=== PATIENT | female | born 1945 | race Caucasian/White ===

== ENCOUNTER 2018-05-08 16:28 | Inpatient (IN) ==
[2018-05-08 19:29] LABS: BASO# 0.03 X1000 (0.0-0.2); BASO% 0.5 % (0.0-0.8); EOS# 0.11 X1000 (0.0-0.7); EOS% 1.8 % (0.0-10.0); HEMATOCRIT 40.2 % (37.0-47.0); HEMOGLOBIN 12.9 g/dL (12.0-16.0); IMM GRAN# 0.11 X1000 (0.0-0.04); IMM GRAN% 1.8 % (0.0-0.5); LYMPH# 2.08 X1000 (1.2-3.4); LYMPH% 33.9 % (20.5-51.1); MCH 29.5 PG (27-31); MCHC 32.1 g/dL (33-37); MCV 91.8 FL (81-99); MONO# 0.55 X1000 (0.11-0.59); MPV 8.5 FL (7.4-10.4); NEUT# 3.25 X1000 (1.4-6.5); PLT 217 X1000 (130-400); RBC 4.38 XMIL (4.2-5.4); RDW 12.4 % (11.5-14.5); WBC 6.13 X1000 (4.8-10.8)
[2018-05-08 19:50] LABS: ALB/GLOB RATIO 1.6; CALCIUM 9.4 mg/dL (8.8-10.2); CREATININE 1.3 mg/dL (0.5-0.9); POTASSIUM 4.4 mmol/L (3.5-5.1); TOTAL BILIRUBIN 0.2 mg/dL (0.20-1.00); TOTAL PROTEIN 6.5 g/dL (6.3-8.3)
--- NOTE | 2018-05-08 20:32 | Diag Imaging Result Doc PS360 ---
CHEST-2 VIEWS - 05/08/2018 INDICATION: SOB COMPARISON: 06/27/2017 FINDINGS: There is a right chest port in good position. There is some linear scarring throughout the left lung peripherally. The right lung is well expanded and clear. No pneumothorax or pleural effusion. Heart size is top normal. IMPRESSION: Linear opacity suggesting scarring throughout the left lung. Electronically signed by Lazaro Shahid 05/08/2018 8:29 PM
[2018-05-08] MEDS: HUMULIN R SUBQ SCH (21:07)
[2018-05-08] MEDS: DESYREL PO SCH (21:14)
[2018-05-08] MEDS: ASPIRIN PO SCH (21:14)
[2018-05-08] MEDS: PRAVACHOL PO SCH (21:14)
[2018-05-08] MEDS: ULTRAM PO SCH (21:14)
[2018-05-08] MEDS: KLOR-CON PO SCH (21:14)
[2018-05-08] MEDS: XANAX PO SCH (21:19)
[2018-05-08] MEDS ORDERED: MORPHINE IV PRN (22:38)
[2018-05-08] MEDS: MACROBID PO SCH (22:48)
[2018-05-09] MEDS: NITROGLYCERIN TOP SCH ×4 (01:42→21:00)
--- NOTE | 2018-05-09 02:43 | HISTORY AND PHYSICAL ---
CHIEF COMPLAINT: Exertional chest pain for the last 1 week. HISTORY OF PRESENT ILLNESS: She is a 72-year-old white female came to my office from the emergency room visit from the [facility]. She was told all the workup was negative. She was found to have urinary tract infection due to Citrobacter. Patient was sent home on cephalexin. [facility]. Upon questioning, the patient has exertional heaviness in the chest relieving with rest. Suspicious for coronary artery disease. The patient was seen prior by Dr. Johnson. Left heart catheterization was done in 2011 with high calcium score. She had a ramus intermedius occlusion treated with a [employer] medical management. Patient is high risk for having coronary artery disease. Admitted to the hospital for further workup, rule out ME, rule out ischemic heart disease. PAST MEDICAL HISTORY: 1. Chronic anxiety. 2. COPD. 3. Type 2 diabetes, insulin-dependent. 4. Metabolic syndrome. 5. Hypertension. 6. Acid reflux disease. 7. Migraine headaches. 8. Hyperlipidemia. 9. Follicular B-cell lymphoma. 10. Kidney stones. 11. Sleep apnea. 12. Incontinence of urine. 13. Fibromyalgia. 14. Vitamin B12 deficiency. PAST SURGICAL HISTORY: 1. History of kidney stones extraction. 2. Bilateral cataract surgery. 3. Cholecystectomy. 4. Hysterectomy. 5. Bilateral knee arthroplasty. 6. Heller's myotomy. 7. Port-A-Cath on the right side by Dr. Goins. MEDICATIONS: Nexium 40 mg daily, trazodone 150 at bedtime, Pravachol 40 daily, Xanax 1 mg p.o. b.i.d., Cardizem 180 daily, insulin pump, Hyzaar 100/25 daily, Imitrex as needed , VESIcare 10 daily, Spiriva 1 inhalation daily, gabapentin 100 daily, allopurinol 300 daily, Macrobid 100 p.o. b.i.d., tramadol, [place] as needed, Cymbalta 60 daily, Elmiron 100 mg p.o. b.i.d., potassium 20 mEq daily. ALLERGIES: Adhesive tape and Lyrica. SOCIAL HISTORY: She is for 48 years, 2 children. Lives in [place]. No smoking, no drugs, no alcohol abuse. FAMILY HISTORY: Father at the age of 86 from Parkinson disease. Mom from old age. HEALTH MAINTENANCE: Flu vaccine 12/2017, pneumococcal 2012, shingles 2012. Mammography 02/2018. DEXA scan 02/2014. Colonoscopy 2011. Last eye exam 2016 in [place]. REVIEW OF SYSTEMS: HEENT: No headache. No vision problem. No earache. No sore throat. NECK: Rash from the adhesive tape on the neck. Cardiopulmonary: Exertional chest pain. No shortness of breath, PND, orthopnea. No swelling of feet. Gastrointestinal: No nausea, vomiting, abdominal pain. Recurrent UTI symptoms due to incontinence of urine. Musculoskeletal: Chronic back pain and knee pains. Neurologic: No focal symptoms, weakness, or seizures. Endocrine: The patient has diabetes. PHYSICAL EXAM: VITAL SIGNS: Temperature is 98.9 degrees, pulse is 75, blood pressure is 148/80 , O2 saturation 99% on 3 L. 5 feet 8 inches, 242 pounds. HEENT: Within normal limits. NECK: Supple. No elevation of JVD. CHEST: Port-A-Cath present on the right side of the chest. Chest has bilateral air entry. HEART: Sounds are regular. No murmur. ABDOMEN: Belly is soft, obese, nontender. Good bowel sounds. EXTREMITIES: No peripheral edema, cyanosis. NEURO: No obvious neurological deficits noted. INVESTIGATIONS: EKG is pending. CBC: White cell count 6.1, hematocrit 40, platelets 270,000. SMA-7: Creatinine 1.3. Glucose 112. A1c 5.0. AST, ALT, cardiac enzymes, proBNP were normal. Chest x-ray was stable. ASSESSMENT AND PLAN: 1. A 72-year-old white female admitted to the hospital with exertional chest pain equal to angina in light of pre-existing ischemic heart disease. Plan is follow up on EKG, if the EKG is negative will consider stress test and echocardiography. 2. Urinary tract infection, recently treated. Follow up on urine culture. Check the lipid panel. 3. Hyperlipidemia, on Pravachol. 4. Reconcile home medications. Continue on aspirin and nitrates. Morphine for p.r.n. pain. 5. DVT and GI prophylaxis. Lovenox and proton pump inhibitor. cc: MD ROYAL Willams
[2018-05-09] MEDS: HUMULIN R SUBQ SCH ×4 (06:21→21:04)
[2018-05-09] MEDS: ULTRAM PO SCH ×3 (06:29→21:01)
--- NOTE | 2018-05-09 07:17 | EKG Report ---
Test Performed on : 05/08/2018 8:36:55 PM Test Reason : chest pain Blood Pressure : / mmHG Vent. Rate : 079 BPM Atrial Rate : 079 BPM P-R Int : 212 ms QRS Dur : 074 ms QT Int : 390 ms P-R-T Axes : 038 003 054 degrees QTc Int : 447 ms Sinus rhythm. with 1st degree AV block. Otherwise normal ECG When compared with ECG of 10-OCT-2017 16:39, No significant change was found Confirmed by Aakash Allen MD ([id number]) on 05/10/2018 6:47:19 AM
[2018-05-09] MEDS: SPIRIVA INH SCH (08:32)
[2018-05-09 08:39] LABS: CHOLESTEROL 148 mg/dL (0-200); HDL 40 mg/dL (45-65); LDL 59 mg/dL; TRIGLYCERIDES 243 mg/dL (35-135); VLDL 49 mg/dL
[2018-05-09] MEDS: TYLENOL PO PRN ×2 (08:59→17:48)
[2018-05-09] MEDS ORDERED: LEXISCAN ONE (10:21)
[2018-05-09] MEDS: MACROBID PO SCH ×2 (13:51→21:01)
[2018-05-09] MEDS: CYMBALTA PO SCH (13:51)
[2018-05-09] MEDS: PRILOSEC PO SCH (13:51)
[2018-05-09] MEDS: ZYLOPRIM PO SCH (13:51)
[2018-05-09] MEDS: XANAX PO SCH ×2 (13:52→21:00)
[2018-05-09] MEDS: KLOR-CON PO SCH ×2 (13:52→21:01)
[2018-05-09] MEDS: NEURONTIN PO SCH (13:53)
[2018-05-09] MEDS: HYZAAR 50/12.5 MG PO SCH (13:53)
[2018-05-09] MEDS: LOVENOX SUBQ SCH (13:53)
--- NOTE | 2018-05-09 14:19 | Diag Imaging Result Document ---
PROCEDURE NAME: MYOCARDIAL PERF SCAN, STR/REST - 05/09/2018 STUDY: Lexiscan sestamibi interpretation. SUMMARY: The patient was administered 15.4 mCi of technetium-99m sestamibi, after which resting cardiac images were obtained. Patient subsequently administered Lexiscan 0.4 mg intravenously after which the heart rate went from 79 beats per minute to 105 beats per minute. The blood pressure went from 146/73 to 162/81. With Lexiscan, the patient had chest discomfort. Following the administration of Lexiscan, the patient was administered 45.0 mCi of technetium 99-m sestamibi after which gated stress cardiac images were obtained. Baseline ECG demonstrated sinus rhythm and left axis deviation. With Lexiscan, there were no diagnostic ST-segment changes. SPECT images were reconstructed in the short, horizontal, vertical long axis. A review of these images demonstrated. No scintigraphic evidence of inducible myocardial ischemia or prior infarct. Gated images demonstrate a calculated left ventricular ejection fraction of 77% with symmetrical wall motion/thickening. CONCLUSIONS: 1. Adequate response to Lexiscan. 2. Clinically negative for chest pain. 3. Electrocardiographically negative for Lexiscan induced myocardial ischemia. 4. Lexiscan sestamibi images demonstrate no scintigraphic evidence of inducible myocardial ischemia. Normal left ventricular systolic function demonstrated. cc: MD Elan Thakur MD
[2018-05-09] MEDS ORDERED: IMITREX PO ONE (16:05)
[2018-05-09] MEDS: PRAVACHOL PO SCH (21:01)
[2018-05-09] MEDS: DESYREL PO SCH (21:01)
[2018-05-09] MEDS: ASPIRIN PO SCH (21:01)
--- NOTE | 2018-05-09 22:30 | ECHO REPORT ---
ORDER DATE: 05/08/2018 MEASUREMENTS: Left ventricular end-diastolic diameter 4.1. Systolic diameter 2.0. Septal thickness 1.2. Posterior wall thickness 1.1. Aortic root 2.6. Left atrium 3.9. SUMMARY: 1. Technically difficult study due to limited acoustic window quality. Intravenous echocardiogram contrast agent Optison was utilized to enhance endocardial definition. 2. The aortic valve is not well-imaged, but appears to demonstrate mild sclerotic changes, but opens adequately on 2-dimensional images. Peak gradient across the aortic valve is approximately 10 mmHg. Mitral, tricuspid, and pulmonic valves are without evidence of structural abnormality. The aortic root is normal in size. 3. Normal left ventricular dimensions suggested on 2-dimensional images. Estimated left ventricular ejection fraction appears to be at least 65%. No regional wall motion abnormalities evident. Doppler suggests grade 1 left ventricular diastolic dysfunction. Left atrium, right atrium, right ventricle are normal in size, with normal right ventricular systolic function. 4. No pericardial effusion. 5. Appearance of inferior vena cava suggests normal central venous pressure. cc: MD Elan Thakur MD
[2018-05-10] MEDS: TYLENOL PO PRN (00:46)
[2018-05-10] MEDS: NITROGLYCERIN TOP SCH ×2 (03:25→09:04)
--- NOTE | 2018-05-10 03:52 | PROGRESS NOTE ---
DATE: 05/09/2018 SUBJECTIVE: Patient is pain-free. Complains of some headache and cramping. Waiting for a stress test. EXAMINATION: Vital Signs: Temperature Is 97.9 degrees, pulse is 97, blood pressure is stable. HEENT: Within normal limits. Neck: Supple. No lymphadenopathy. Chest: Bilateral air entry. Heart: Sounds are regular. Abdomen: Belly is soft, nontender. Good bowel sounds. INVESTIGATIONS: CBC is normal. SMA-7 is normal. Cardiac enzymes were negative. Triglycerides 240, cholesterol 148, LDL 59. ASSESSMENT AND PLAN: Exertional chest pain. EKG, cardiac enzymes were negative. Last left heart catheterization was 2011. With a calcium score high, in light of risk factors, rule out ischemic heart disease. Based on the stress test, further recommendations will be followed. Continue present treatment. Discussed the plan of care with the family at bedside. LEVEL OF DOCUMENTATION: 25 minutes. cc: Elan Zaragoza MD
[2018-05-10] MEDS: ULTRAM PO SCH (06:11)
[2018-05-10] MEDS: HUMULIN R SUBQ SCH (06:17)
[2018-05-10 06:23] LABS: URINE SOURCE CLEAN CATCH
[2018-05-10 06:26] LABS: BILIRUBIN URINE NEGATIVE (NEGATIVE); BLOOD URINE NEGATIVE (NEGATIVE); COLOR YELLOW; GLUCOSE URINE NEGATIVE (NEGATIVE); KETONE URINE NEGATIVE (NEGATIVE); LEUKOCYTES URINE SMALL (NEGATIVE); NITRITE URINE NEGATIVE (NEGATIVE); PH URINE 5.5; PROTEIN URINE NEGATIVE (NEGATIVE); SP GRAVITY URINE 1.001; TURBIDITY URINE CLEAR (CLEAR); UROBILINOGEN URINE NORMAL (NORMAL)
[2018-05-10 06:28] LABS: UR EPITHELIAL CELLS <10 /HPF (<10); URINE BACTERIA NEGATIVE /HPF; URINE RBC <10 /HPF (<10)
[2018-05-10 08:11] VITALS: BP 122/77
[2018-05-10] MEDS: SPIRIVA INH SCH (08:16)
[2018-05-10] MEDS: KLOR-CON PO SCH (09:07)
[2018-05-10] MEDS: NEURONTIN PO SCH (09:08)
[2018-05-10] MEDS: HYZAAR 50/12.5 MG PO SCH (09:08)
[2018-05-10] MEDS: CYMBALTA PO SCH (09:08)
[2018-05-10] MEDS: XANAX PO SCH (09:08)
[2018-05-10] MEDS: MACROBID PO SCH (09:08)
[2018-05-10] MEDS: ZYLOPRIM PO SCH (09:08)
[2018-05-10] MEDS: PRILOSEC PO SCH (09:10)
[2018-05-10] MEDS: LOVENOX SUBQ SCH (09:10)
--- NOTE | 2018-05-11 23:00 | DISCHARGE SUMMARY ---
ADMISSION DATE: 05/08/2018 DISCHARGE DATE: 05/10/2018 DISCHARGING DIAGNOSIS: Exertional chest pain noncritical coronary artery disease from the previous left heart catheterization in 2011 with the ramus intermedius occlusion by Dr. Johnson. SECONDARY DIAGNOSIS: 1. Chronic anxiety. 2. Chronic obstructive pulmonary disease. 3. Type 2 diabetes on insulin dependent. 4. Metabolic syndrome. 5. Hypertension . 6. Acid reflux disease. 7. Migraine headaches. 8. Hyperlipidemia. 9. Low-grade follicular B-cell lymphoma in remission. 10. Kidney stones. 11. Sleep apnea. 12. Recurrent urinary tract infection due to incontinence of urine. 13. Chronic fibromyalgia, vitamin B12 deficiency. 14. History of port on the right side. PROCEDURES: Myocardial perfusion scan no reversible ischemia as per Jus Shipley. BRIEF HISTORY: Please see the H and P that was done on 05/08/2018. In brief she is a 72-year-old white female was seen in the [facility] ER for exertional weakness and chest pressure and sent home on UTI. Initial workup EKG cardiac enzymes were negative. In light of existing heart disease and risk factors patient was admitted for observation for rule out MT rule out ischemic heart disease. HOSPITAL COURSE: Initial workup EKG, cardiac enzymes were negative. I did discuss with Dr. Chaudhary who is senior applications engineer if he wants to do a stress test. If is positive will do left heart catheterization. Subsequent cardiac workup was negative. Patient could not tolerate nitrates due to severe headaches. Results were discussed, if she continues to have symptomatic will pursue for left heart catheterization as an outpatient. She is going to follow up with this android developer Dr. Johnson. Findings were reassuring. LABS: CBC. White cell count 6.1, hematocrit 40, platelet 217,000. SMA 7 sodium 140, potassium 4.4, chloride 104, BUN 16, creatinine 1.3, A1c 5.0. Cardiac enzymes were negative. Troponin was negative, proBNP was normal, triglycerides 243, cholesterol 148, LDL is 59. Urine cultures repeat was negative. Chest x-ray stable. DISCHARGE INSTRUCTIONS: Patient did receive pneumococcal 13 vaccine 06/27/2017 and Nexium 40 mg daily, trazodone 150 at bedtime, pravastatin 40 daily, Xanax 1 mg p.o. b.i.d., Cardizem 180 daily, insulin pump as directed, A1c is excellent, Hyzaar 100/25 daily, Imitrex as needed, VESIcare 10 mg daily, Spiriva 1 puff daily, gabapentin 100 daily, Estrace 1 mg daily, allopurinol 300 daily, Macrobid 50 mg p.o. b.i.d. for 7 days, Cymbalta 60 daily, Neurontin 300 t.i.d., Elmiron 100 p.o. b.i.d., potassium 20 mEq p.o. b.i.d., tramadol 50 q.8, do not take [place] with Xanax and continue to see the android developer Dr. Johnson, Dr. Coreas for lymphoma. As for existing heart disease A1c is excellent and the LDL is less than 70. cc: Emil Coreas MD
== END 2018-05-10 10:41 | disposition home health service (06) | DRG 313 ==
LOC: DIRADM 16:28 → 3N 18:02
PROVIDERS: ADMIT Internal Medicine; ATTEND Internal Medicine
CPT/HCPCS: 71020; 71046; 78452; 80048; 80053; 80061; 81001; 82550; 82948; 83036; 83880; 84484; 85025; 87088; 93005; 93010; 93017; 93306; 94640; 94761; A9270; A9500; C8929; J1650; J2785; Q9957; XXXXX

== ENCOUNTER 2018-06-01 05:39 | Inpatient (IN) ==
--- NOTE | 2018-06-01 06:56 | Diag Imaging Result Doc PS360 ---
EXAM: FOREARM-LEFT 06/01/2018 HISTORY: left forearm pain TECHNIQUE: Left forearm two views COMMENT: There is no evidence of fracture or dislocation. No periosteal reaction or erosion is present. IMPRESSION: No evidence of acute bony abnormality. Electronically signed by Danny Bernardo 06/01/2018 6:54 AM
--- NOTE | 2018-06-01 06:57 | Diag Imaging Result Doc PS360 ---
EXAM: HUMERUS-LEFT 06/01/2018 HISTORY: left arm pain TECHNIQUE: Left humerus two views COMMENT: There is no evidence of fracture or dislocation. No other definite bony abnormalities are present. IMPRESSION: No acute disease. Electronically signed by Danny Bernardo 06/01/2018 6:54 AM
--- NOTE | 2018-06-01 06:58 | Diag Imaging Result Doc PS360 ---
EXAM: SHOULDER-RIGHT 06/01/2018 HISTORY: fall TECHNIQUE: Right shoulder three views COMMENT: There are degenerative changes in the acromioclavicular joint. There is no evidence of fracture or dislocation. Compared to 06/19/2017 there has been no significant change in the appearance of the right shoulder. IMPRESSION: Osteoarthritis. Electronically signed by Danny Bernardo 06/01/2018 6:55 AM
--- NOTE | 2018-06-01 07:03 | Diag Imaging Result Doc PS360 ---
EXAM: CT HEAD/C-SPINE W/O CONTRAST 06/01/2018 HISTORY: head injury TECHNIQUE: This exam was performed using automated exposure control, adjustment of mA or kV according to patient size, and/or use of iterative reconstruction technique. COMMENT: There are no previous studies available for comparison. There is some atherosclerotic calcification in both vertebral and internal carotid arteries. There is a calcification in the right globus pallidus. There are some patchy abnormal lucencies present in both hemispheres particularly in the subcortical and periventricular white matter of the parietal lobes. There is no evidence of bleed or abnormal extra-axial fluid collection. The calvarium is intact. There are fluid levels in both sphenoid sinuses and there is mucosal thickening in the anterior ethmoid air cells bilaterally. There is a small amount of fluid in the right maxillary sinus. No evidence of acute bony abnormality is present. Cervical spine: There is severe degenerative facet disease at the C4-5 and C5-C6 levels on the right side and the C3-4 level on the left. There is posterior osteophyte formation at the C5-6 disc space level. There is no evidence of fracture, subluxation, or prevertebral soft tissue swelling. There are degenerative changes in the anterior atlantoaxial joint. There is a small accessory ossicle adjacent to the vertebral artery foramen at C1. IMPRESSION: No evidence of acute intracranial disease. Chronic microvascular white matter disease. Sinusitis as described. Chronic degenerative changes in the cervical spine. Electronically signed by Danny Bernardo 06/01/2018 7:01 AM
[2018-06-01 07:41] LABS: CK INDEX 1.7 (0.0-2.5); CK-MB 8.32 ng/mL (0.0-5.0)
--- NOTE | 2018-06-01 08:10 | PROVIDER DOCUMENTATION ---
HPI-Musculoskeletal Pain/Inj - GENERAL Chief Complaint: Fall Stated Complaint: found in floor Time Seen by Provider: 06/01/18 07:31 Source: patient, family - HX OF PRESENT ILLNESS-MUSKULOSKELTAL Quality of Pain: reports: dull Severity in ED: mild, moderate Onset/Duration: 4-6 hours ago Timing: still present Modifying Factors: improves with: nothing Any recent injury?: No Locality of Occurance: Home (PT HAS POOR MOBILITY AND HEALTH. SLEEPS IN SEPERATE ROOM WITH BEDSIDE BUZZER. FELL OUT OF BE MID OF NIGHT AND LAY ONSTOMACH LNG ENOUGH TO GET ABRASIONS AND BRUISES OF UPPER ABDOMEN. C/O PAINS , AUNG LEFT F OREARM. PT AWAKE, NO DISTRESS .) Similar Symptoms Previously?: Yes Review of Systems - Adult - REVIEW OF SYSTEMS - ADULT Constitutional: reports: no symptoms reported. denies: chills Eyes: reports: no symptoms reported Ears, Nose, Mouth & Throat: reports: no symptoms reported Cardiovascular: reports: no symptoms reported Respiratory: reports: no symptoms reported Gastrointestinal: reports: no symptoms reported Genitourinary: reports: no symptoms reported Musculoskeletal: reports: no symptoms reported Integumentary: reports: no symptoms reported Neurological: reports: no symptoms reported Psychiatric: reports: no symptoms reported Endocrine: reports: no symptoms reported Hematologic/Lymphatic: reports: no symptoms reported Allergic/Immunologic: reports: no symptoms reported All Other Systems: Reviewed and Negative Past History - Adult - PAST MEDICAL HISTORY-ADULT Review of Records: reports: Old Records Reviewed, Nursing Assessment Review, Medications Reviewed, Social history reviewed & non-contributory. Major Childhood Illnesses: reports: denies history Cardiovascular: reports: denies history Respiratory: reports: denies history Gastrointestinal: reports: denies history Obstetrical/Gynecological: reports: denies history Genitourinary: reports: denies history Musculoskeletal: reports: denies history Neurological: reports: denies history Endocrine/Immune: reports: denies history Other Conditions: reports: denies history - SOCIAL HISTORY Alcohol Use Frequency: never Physical Exam-Injury Related - Physical Exam-Injury Related Initial Vital Signs Reviewed: Yes (FEVER) General Appearance: appears well. negative: mild distress Eyes: PERRL/EOMI, pink conjunctivae Head, Ears, Nose, Mouth & Throat: normocephalic/atraumatic, moist mucous membranes Neck: non-tender, full range of motion, supple Respiratory: chest non-tender, lungs clear, normal breath sounds, no respiratory distress Cardiovascular: normal peripheral pulses, regular rate, rhythm, no edema, no gallop, no JVD, no murmur Abdominal Exam: normal bowel sounds, non tender, soft, no organomegaly, other (LINEAR BRUISING UPPR ANT ABD WALL, MINIMAL LOCAL TENDERNESS SAME AREA) Extremity: normal range of motion, normal inspection, tenderness (MILD-MODERTE TENDERNESS /WO DEFORMITY LEFT MID FOREARM ADN ELBOW, LEFT UPPER HUMEROUS). negative: deformity, erythema Integumentary: normal color, warm/dry, ecchymosis Neurologic: land inspector II-XII nml as tested, grossly normal, no motor/sensory deficits Psych/Mental Status: normal mood/affect, normal thought content, normal thought process, oriented x 3 - Glascow Coma Score Best Eye Response (Yohannes): (4) open spontaneously Best Verbal Response (Sayre): (5) oriented Best Motor Response (Sayre): (6) obeys commands (15) Progress - PLAN OF CARE/RESULTS Progress/Plan/Lab Results: Vital Signs - 8 hr 06/01/18 05:56 Temperature 100.0 F H Pulse Rate 106 H Respiratory Rate 13 Blood Pressure 155/67 O2 Sat by Pulse Oximetry 95 06/01/18 10:27 Influenza Screen - Final Nasopharyngeal Laboratory Results - last 24 hr 06/01/18 06/01/18 06/01/18 06:55 10:21 10:21 WBC 6.94 RBC 3.88 L Hgb 11.5 L Hct 36.1 L MCV 93.0 MCH 29.6 MCHC 31.9 L RDW Std Deviation 14.0 Plt Count 149 MPV 9.0 Immature Gran % (Auto) 2.0 H Neut % (Auto) 69.5 Lymph % (Auto) 18.6 L Cotton % (Auto) 9.7 H Eos % (Auto) 0.1 Baso % (Auto) 0.1 Immature Gran # (Auto) 0.14 H Neut # (Auto) 4.82 Lymph # (Auto) 1.29 Cotton # (Auto) 0.67 H Eos # (Auto) 0.01 Baso # (Auto) 0.01 Sodium 136 Potassium 3.1 L Chloride 97 L Carbon Dioxide 24 L Anion Gap 15 BUN 15 Creatinine 1.1 H Estimated GFR/1.73 m2 49 BUN/Creatinine Ratio 14 Glucose 120 H Calculated Osmolality 274 Calcium 9.3 Magnesium 1.3 L Total Bilirubin 0.31 AST 66 H ALT 38 H Alkaline Phosphatase 81 Creatine Kinase 480 H Creatine Kinase Index 1.7 CK-MB (CK-2) 8.32 H Troponin T Total Protein 6.1 L Albumin 4.0 Globulin 2.1 Albumin/Globulin Ratio 1.9 Plasma Lactate Urine Source Urine Color Urine Turbidity Urine pH Ur Specific [place] Urine Protein Ur Glucose (Stick) Ur Ketones (Stick) Urine Blood Urine Nitrite Urine Bilirubin Urobilinogen Dipstick Urine Leukocytes Urine WBC (Auto) Urine RBC (Auto) U Epithel Cells (Auto) Urine Bacteria (Auto) 06/01/18 06/01/18 06/01/18 10:21 10:21 11:54 WBC RBC Hgb Hct MCV MCH MCHC RDW Std Deviation Plt Count MPV Immature Gran % (Auto) Neut % (Auto) Lymph % (Auto) Cotton % (Auto) Eos % (Auto) Baso % (Auto) Immature Gran # (Auto) Neut # (Auto) Lymph # (Auto) Cotton # (Auto) Eos # (Auto) Baso # (Auto) Sodium Potassium Chloride Carbon Dioxide Anion Gap BUN Creatinine Estimated GFR/1.73 m2 BUN/Creatinine Ratio Glucose Calculated Osmolality Calcium Magnesium Total Bilirubin AST ALT Alkaline Phosphatase Creatine Kinase Creatine Kinase Index CK-MB (CK-2) Troponin T < 0.010 Total Protein Albumin Globulin Albumin/Globulin Ratio Plasma Lactate 2.7 H Urine Source CATH Urine Color ORANGE Urine Turbidity CLEAR Urine pH 6.0 Ur Specific [place] 1.022 Urine Protein 70 A Ur Glucose (Stick) NEGATIVE Ur Ketones (Stick) NEGATIVE Urine Blood MODERATE A Urine Nitrite POSITIVE A Urine Bilirubin MODERATE A Urobilinogen Dipstick 4 A Urine Leukocytes NEGATIVE Urine WBC (Auto) 10-20 A Urine RBC (Auto) <10 U Epithel Cells (Auto) <10 Urine Bacteria (Auto) NEGATIVE Orders Category Date Time Status Saline Loc NOW Care 06/01/18 08:12 Active Straight Catheterization ORDERED Care 06/01/18 08:13 Active Straight Catheterization ORDERED Care 06/01/18 11:29 Active CHEST-PORTABLE [RAD] Stat Exams 06/01/18 08:[address] HEAD/C-SPINE W/O CONTRAST [CT] Stat Exams 06/01/18 05:41 Completed FOREARM-LEFT [RAD] Stat Exams 06/01/18 05:41 Completed HUMERUS-LEFT [RAD] Stat Exams 06/01/18 05:42 Completed SHOULDER-RIGHT [RAD] Stat Exams 06/01/18 06:13 Completed BLOOD CULTURE [BLDCUL] Stat Lab 06/01/18 10:21 Ordered CBC WITH ELECTRONIC DIFF [HEME] Stat Lab 06/01/18 10:21 Completed CK PROFILE [SP CHEM] Stat Lab 06/01/18 06:55 Completed COMPREHENSIVE METABOLIC PANEL [CHEM] Stat Lab 06/01/18 10:21 Completed INFLUENZA SCREEN A/B Stat Lab 06/01/18 10:27 Completed LACTATE, PLASMA [CHEM] Stat Lab 06/01/18 10:21 Completed MAGNESIUM [CHEM] Stat Lab 06/01/18 10:21 Completed TROPONIN T Stat Lab 06/01/18 10:21 Completed URINALYSIS W/POSS RFLX CULT [URINALYSIS] Stat Lab 06/01/18 11:54 Completed URINE CULTURE [RM] Routine Lab 06/01/18 12:13 Received Acetaminophen [Tylenol] Med 06/01/18 10:58 Discontinued 650 mg PO NOW ONE EKG [EKG] Stat Ther 06/01/18 08:12 Ordered Result Diagrams: 06/01/18 10:21 06/01/18 10:21 - CONSULTS/PCP/HOSPITALIST Notification #1 *Consult/PCP/Hospitalist*: dr HANEY Time Discussed: 13:31 Consult Disposition: Admit Departure - Departure Date of Disposition Decision: 06/01/18 Time of Disposition Decision: 13:31 DIAGNOSIS: Fall, Lactic acidosis, UTI (urinary tract infection), Hypokalemia, Weakness Disposition: ADMITTED INPATIENT 09 Certified Medical Emergency: Emergent Condition: Critical Referrals and Follow-Ups: Dayana Haney MD [Primary Care Provider] - - Critical Care Note This patient required my direct & personal management of CC.: No Attestation - Physician/ ELI Attestation The physician spent face to face time with patient:: Yes Advanced Practice Provider documentation review:: Supervising physician onsite and consulted in the evaluation and care of this patient. The physician did have a face to face encounter with the patient.
--- NOTE | 2018-06-01 08:47 | Diag Imaging Result Doc PS360 ---
EXAM: CHEST-PORTABLE 06/01/2018 HISTORY: FEVER TECHNIQUE: AP portable at 0835 COMMENT: There is a Port-A-Cath on the right with its tip in the superior vena cava. The inspiration is less optimal than on 05/08/2018. Considering differences in technique and inspiration there has been no significant change. IMPRESSION: Stable chest. Electronically signed by Danny Bernardo 06/01/2018 8:45 AM
--- NOTE | 2018-06-01 10:28 | ED EKG INTERP ---
This chart was entered by Mayra Luz Scribe, acting as scribe for Jairo Polanco MD. EKG Interpretation - EKG Time of EKG reading by physician:: 09:48 EKG Read and Signed by:: Jairo Polanco EKG Interpretation (*Must complete 3 of following elements*): Normal Rate: 102 Rhythm: Sinus tach [place]: normal QRS: normal CA Interval: normal ST Wave: normal Attestation - Physician/ ELI Attestation Patient care was provided by Advanced Practice Provider:: No The physician spent face to face time with patient:: Yes Advanced Practice Provider documentation review:: Supervising physician onsite and consulted in the evaluation and care of this patient. The physician did have a face to face encounter with the patient. This chart was documented by the indicated scribe, (Mayra Luz Scribe) and accurately reflects the services I performed and decisions made by me, Jairo Polanco MD, as attested by the provider's signature.
[2018-06-01 10:41] LABS: BASO# 0.01 X1000 (0.0-0.2); BASO% 0.1 % (0.0-0.8); EOS# 0.01 X1000 (0.0-0.7); EOS% 0.1 % (0.0-10.0); HEMATOCRIT 36.1 % (37.0-47.0); HEMOGLOBIN 11.5 g/dL (12.0-16.0); IMM GRAN# 0.14 X1000 (0.0-0.04); LYMPH# 1.29 X1000 (1.2-3.4); LYMPH% 18.6 % (20.5-51.1); MCH 29.6 PG (27-31); MCHC 31.9 g/dL (33-37); MONO# 0.67 X1000 (0.11-0.59); MONO% 9.7 % (1.7-9.3); NEUT# 4.82 X1000 (1.4-6.5); NEUT% 69.5 % (42.2-75.2); PLT 149 X1000 (130-400); RBC 3.88 XMIL (4.2-5.4); WBC 6.94 X1000 (4.8-10.8)
[2018-06-01] MEDS ORDERED: TYLENOL PO ONE (10:58)
[2018-06-01 11:08] LABS: ALB/GLOB RATIO 1.9; CALCIUM 9.3 mg/dL (8.8-10.2); CREATININE 1.1 mg/dL (0.5-0.9); MAGNESIUM 1.3 mg/dL (1.5-2.7); POTASSIUM 3.1 mmol/L (3.5-5.1); TOTAL BILIRUBIN 0.31 mg/dL (0.20-1.00); TOTAL PROTEIN 6.1 g/dL (6.3-8.3)
[2018-06-01 11:55] LABS: URINE SOURCE CATH
[2018-06-01 11:59] LABS: BILIRUBIN URINE MODERATE (NEGATIVE); BLOOD URINE MODERATE (NEGATIVE); COLOR ORANGE; GLUCOSE URINE NEGATIVE (NEGATIVE); KETONE URINE NEGATIVE (NEGATIVE); LEUKOCYTES URINE NEGATIVE (NEGATIVE); NITRITE URINE POSITIVE (NEGATIVE); PROTEIN URINE 70 mg/dL (NEGATIVE); SP GRAVITY URINE 1.022; TURBIDITY URINE CLEAR (CLEAR); UROBILINOGEN URINE 4 mg/dL (NORMAL)
[2018-06-01 12:01] LABS: UR EPITHELIAL CELLS <10 /HPF (<10); URINE BACTERIA NEGATIVE /HPF; URINE RBC <10 /HPF (<10)
[2018-06-01] MEDS ORDERED: ROCEPHIN 1 GM in NS 50 ML IV ONE (13:42)
[2018-06-01] MEDS ORDERED: NS 1,000 ML IV ONE (13:42)
[2018-06-01] MEDS ORDERED: KLOR-CON PO ONE (13:48)
[2018-06-01] MEDS ORDERED: NS + KCL 20 MEQ 1,000 ML IV ONE (15:59)
[2018-06-01] MEDS: TYLENOL PO PRN (16:50)
[2018-06-01] MEDS: LOVENOX SUBQ SCH (18:40)
[2018-06-01] MEDS: ZOSYN 3.375 GM in NS 50 ML IV SCH (18:40)
[2018-06-01] MEDS: DESYREL PO SCH (21:01)
[2018-06-01] MEDS: ULTRAM PO SCH (21:01)
[2018-06-01] MEDS: ELMIRON PO SCH (21:02)
[2018-06-01] MEDS: KLOR-CON PO SCH (21:02)
[2018-06-01] MEDS: XANAX PO SCH (21:02)
[2018-06-01] MEDS: PRAVACHOL PO SCH (21:02)
[2018-06-01] MEDS: NS 1,000 ML IV SCH (21:14)
[2018-06-02] MEDS: ZOSYN 3.375 GM in NS 50 ML IV SCH ×5 (00:04→20:18)
[2018-06-02] MEDS: NS 1,000 ML IV SCH ×3 (03:23→18:33)
[2018-06-02] MEDS: ULTRAM PO SCH ×3 (04:13→20:17)
--- NOTE | 2018-06-02 06:17 | HISTORY AND PHYSICAL ---
CHIEF COMPLAINT: 1. History of fall, found on the floor, sustained multiple bruises. 2. Elevated CK. 3. Some chest pain. 4. UTI symptoms. HISTORY OF PRESENT ILLNESS: She is a 72-year-old white female who basically came in the hospital with the . The patient has poor mobility, had a fall at midnight last night, again today and has multiple abrasions and bruises on the upper abdomen and forearm. The patient was brought into the emergency room. The patient was worked up in the ER. The patient is running low-grade fever, 100 degrees. She also has interstitial cystitis with recurrent UTI. She also has elevated CK and index as well. She complains of some chest pain. Last time she had a few weeks ago cardiac stress test which was negative. Last catheterization was done by Dr. Johnson. For all these reasons the patient has been hospitalized. PAST MEDICAL HISTORY: 1. Chronic anxiety. 2. COPD. 3. Type 2 diabetes, insulin-dependent on pump. 4. Metabolic syndrome. 5. Hypertension. 6. Acid reflux disease. 7. Migraine headaches. 8. Hyperlipidemia. 9. Follicular B cell lymphoma, in remission. 10. Kidney stones. 11. Sleep apnea. 12. Incontinence of urine. 13. Fibromyalgia. 14. Vitamin B12 deficiency. 15. Interstitial cystitis. PAST SURGICAL HISTORY: History of kidney stones, bilateral cataract surgery, cholecystectomy, hysterectomy, bilateral knee arthroplasty, Heller myotomy, Port-A-Cath on the right side by Dr. Goins. ALLERGIES: Lyrica and adhesive tape. SOCIAL HISTORY: for 48 years. Two children. Lives in [place]. No smoking, no drugs, no alcohol abuse. FAMILY HISTORY: Father at the age of 86 from Parkinson disease. Mother from old age. HEALTH MAINTENANCE: Flu vaccine 12/2017, pneumococcal 2012, shingles in 2012. Mammography 02/2018, DEXA scan 02/2014. Colonoscopy in 2011. Last eye exam in 2016 in [place]. MEDICATIONS: Trazodone 150 daily; Pravachol 40 daily; Cardizem 180 daily; insulin pump; Hyzaar 100/25 daily; Imitrex as needed for headaches; Spiriva 1 puff daily; Estrace 1 mg daily; allopurinol 300 daily; duloxetine 60 daily; Neurontin 300 t.i.d.; Prilosec 40 daily; Remeron 100 p.o. b.i.d.; potassium 20 mEq p.o. b.i.d.; Xanax 1 mg p.o. b.i.d.; tramadol 50 q.8. REVIEW OF SYSTEMS: HEENT: No headache. No vision problems. No earache. No sore throat. Neck: No neck pain. No rigidity. Cardiopulmonary: Some occasional chest pain, not related to exertion. No PND, no orthopnea. GI: No nausea, vomiting, abdominal pain. : History of hesitancy, frequency and dysuria. Multiple bruises noted from the fall on the skin. No obvious induration noted. Neurologic: No focal symptoms, seizures or weakness. PHYSICAL EXAMINATION: GENERAL: On examination, 5 feet 8 inches, 257 pounds. Slightly heavyset. VITAL SIGNS: Temperature is 100.1 degrees. Initial blood pressure 160/81, later on 82/62. HEENT: Atraumatic, normocephalic. Pupils equal and reactive to light. TMs are normal. Nose and throat within normal limits. NECK: Supple. No lymphadenopathy. No goiter. CHEST: Bilateral air entry. HEART: Sounds are regular. ABDOMEN: Belly is soft, obese, nontender. EXTREMITIES: No peripheral edema or cyanosis. NEUROLOGIC: No obvious neurological deficits. LABORATORY DATA: CBC: White cell count 6.9, hematocrit 36, platelets 149,000. SMA 7: Sodium 136, potassium 3.1 chloride 97, BUN 15, creatinine 1.1, glucose 180 AST, ALT slightly high. CK was 480, index was is High plasma lactate 2.7. Urine is positive for infection. ASSESSMENT AND PLAN: 1. A 72-year-old white female admitted to the hospital with a fever, urinary tract infection, elevated plasma lactate level. Plan is intravenous Zosyn. 2. Hypokalemia replace the potassium. 3. Intravenous fluids. 4. Deep venous thrombosis prophylaxis with Lovenox. 5. Gastrointestinal prophylaxis with intravenous Protonix. 6. History of noncritical ischemic heart disease. Follow up on serial cardiac enzymes and if there is any consistency or history of angina, consider left heart catheterization. 7. Type 2 diabetes. on insulin pump. 8. Reconcile home medications. Hold the blood pressure medicine if systolic blood pressure less than 100. 9. History of interstitial cystitis, on Elmiron. 10. History of migraine headaches. Imitrex as needed. 11. History of non-Hodgkin lymphoma, stable, in remission. Waiting for a repeat PET scan on Sunday by Dr. Coreas. We will follow up on the clinical course. cc: Elan Zaragoza MD MTDKiki
[2018-06-02] MEDS: IMITREX PO PRN (07:42)
[2018-06-02] MEDS: SPIRIVA INH SCH (08:40)
[2018-06-02] MEDS ORDERED: CARDIZEM CD PO SCH (09:00)
[2018-06-02] MEDS: PRILOSEC PO SCH (09:33)
[2018-06-02] MEDS: HYZAAR 50/12.5 MG PO SCH (09:33)
[2018-06-02] MEDS: KLOR-CON PO SCH ×2 (09:34→20:17)
[2018-06-02] MEDS: ELMIRON PO SCH ×2 (09:34→20:17)
[2018-06-02] MEDS: ESTRACE PO SCH (09:34)
[2018-06-02] MEDS: CYMBALTA PO SCH (09:34)
[2018-06-02] MEDS: ZYLOPRIM PO SCH (09:34)
[2018-06-02] MEDS: XANAX PO SCH ×2 (09:34→20:17)
[2018-06-02] MEDS: CARDIZEM CD PO SCH (09:50)
[2018-06-02] MEDS: HUMALOG SUBQ SCH (09:51)
[2018-06-02] MEDS ORDERED: KLOR-CON PO ONE (10:52)
--- NOTE | 2018-06-02 12:58 | PROGRESS NOTE ---
DATE: 06/02/2018 SUBJECTIVE: The patient complains of pain on the right side of the chest as well as in both knees. OBJECTIVE: Vitals: Temperature is 98 degrees, pulse is 80, blood pressure is 150/63. HEENT: Exam within normal limits. Port seen on the right side. Chest: Bilateral air entry. Pain is reproducible on the right side of the chest. Multiple bruises noted on the right side of the chest as well as of the abdomen and abrasions noted on both knees. Neurologic: No obvious neurological deficits. LABORATORY: Blood sugar 156. Urine cultures are still pending. Blood cultures are pending. ASSESSMENT AND PLAN: 1. History of fall. Sustained injury to the right side of the rib cage, abdomen and both knees with abrasions. X-rays were negative. 2. Check the x-rays of right rib series to rule out any rib fracture. 3. Chest pain was musculoskeletal pain. 4. Urinary tract infection. Follow up on urine cultures with underlying interstitial cystitis. Currently on IV Zosyn. 5. Diabetes is stable. Continue home medications. 6. Non-Hodgkin's lymphoma. Stable. LEVEL OF DOCUMENTATION: 25 minutes. cc: Elan Zaragoza MD
[2018-06-02 13:15] LABS: BASO# 0.01 X1000 (0.0-0.2); BASO% 0.3 % (0.0-0.8); EOS# 0.01 X1000 (0.0-0.7); EOS% 0.3 % (0.0-10.0); HEMATOCRIT 34.3 % (37.0-47.0); HEMOGLOBIN 10.7 g/dL (12.0-16.0); LYMPH% 30.4 % (20.5-51.1); MCH 29.8 PG (27-31); MCHC 31.2 g/dL (33-37); MCV 95.5 FL (81-99); MONO# 0.41 X1000 (0.11-0.59); MONO% 12.5 % (1.7-9.3); MPV 8.6 FL (7.4-10.4); NEUT# 1.86 X1000 (1.4-6.5); NEUT% 56.5 % (42.2-75.2); PLT 127 X1000 (130-400); RBC 3.59 XMIL (4.2-5.4); WBC 3.29 X1000 (4.8-10.8)
[2018-06-02] MEDS: DUONEB (A & A) INH SCH ×3 (13:36→21:27)
[2018-06-02 14:03] LABS: CALCIUM 8.1 mg/dL (8.8-10.2); CREATININE 1.1 mg/dL (0.5-0.9); POTASSIUM 4.1 mmol/L (3.5-5.1)
[2018-06-02 14:20] LABS: CK INDEX 0.6 (0.0-2.5); CK-MB 8.36 ng/mL (0.0-5.0)
[2018-06-02] MEDS ORDERED: HUMULIN R SUBQ SCH (16:00)
--- NOTE | 2018-06-02 17:00 | Diag Imaging Result Doc PS360 ---
EXAM: RIBS UNILAT W/PA CHEST RIGHT 06/02/2018 HISTORY: pain TECHNIQUE: Right rib series 3 views COMMENT: There is no evidence of pneumothorax or pleural fluid collection. The ribs appear to be intact. There is linear opacity in the left upper lobe which was not previously present on 06/01/2018. IMPRESSION: Atelectasis versus pneumonia left upper lobe. Electronically signed by Danny Bernardo 06/02/2018 4:58 PM
[2018-06-02] MEDS: LOVENOX SUBQ SCH (18:09)
[2018-06-02] MEDS ORDERED: D50W SYRINGE IV PRN (19:00)
[2018-06-02] MEDS: PRAVACHOL PO SCH (20:17)
[2018-06-02] MEDS: NEURONTIN PO SCH (20:17)
[2018-06-02] MEDS: DESYREL PO SCH (20:17)
[2018-06-02] MEDS: HUMULIN R SUBQ SCH (22:47)
[2018-06-02 23:32] LABS: CK INDEX 0.5 (0.0-2.5); CK-MB 5.68 ng/mL (0.0-5.0)
[2018-06-03] MEDS: DUONEB (A & A) INH SCH ×6 (03:40→21:10)
[2018-06-03] MEDS: ZOSYN 3.375 GM in NS 50 ML IV SCH ×5 (04:47→21:45)
[2018-06-03] MEDS: NEURONTIN PO SCH ×4 (04:50→20:36)
[2018-06-03] MEDS: ULTRAM PO SCH ×3 (06:12→20:36)
[2018-06-03] MEDS: HUMULIN R SUBQ SCH ×4 (06:13→20:49)
[2018-06-03] MEDS: NS 1,000 ML IV SCH ×2 (06:37→18:56)
--- NOTE | 2018-06-03 07:28 | EKG Report ---
Test Performed on : 06/02/2018 06:52:15 AM Test Reason : cp Blood Pressure : / mmHG Vent. Rate : 092 BPM Atrial Rate : 092 BPM P-R Int : 192 ms QRS Dur : 078 ms QT Int : 376 ms P-R-T Axes : 060 029 064 degrees QTc Int : 464 ms Normal sinus rhythm. Normal ECG When compared with ECG of 01-JUN-2018 09:48, (Unconfirmed) No significant change was found Unconfirmed Result
[2018-06-03] MEDS: ESTRACE PO SCH (08:30)
[2018-06-03] MEDS: PRILOSEC PO SCH (08:30)
[2018-06-03] MEDS: CYMBALTA PO SCH (08:30)
[2018-06-03] MEDS: ZYLOPRIM PO SCH (08:31)
[2018-06-03] MEDS: XANAX PO SCH ×2 (08:31→20:37)
[2018-06-03] MEDS: KLOR-CON PO SCH ×2 (08:31→20:36)
[2018-06-03] MEDS: ELMIRON PO SCH ×2 (08:31→20:37)
[2018-06-03] MEDS: CARDIZEM CD PO SCH (08:31)
[2018-06-03] MEDS: HYZAAR 50/12.5 MG PO SCH (08:37)
--- NOTE | 2018-06-03 08:46 | EKG Report ---
Test Performed on : 06/01/2018 09:48:20 AM Test Reason : CP Blood Pressure : / mmHG Vent. Rate : 102 BPM Atrial Rate : 102 BPM P-R Int : 202 ms QRS Dur : 074 ms QT Int : 348 ms P-R-T Axes : 035 001 066 degrees QTc Int : 453 ms Sinus tachycardia. Otherwise normal ECG When compared with ECG of 08-MAY-2018 20:36, No significant change was found Unconfirmed Result
[2018-06-03] MEDS: HUMALOG SUBQ SCH (09:00)
[2018-06-03 09:19] LABS: CK INDEX 0.6 (0.0-2.5); CK-MB 4.65 ng/mL (0.0-5.0)
[2018-06-03] MEDS: SPIRIVA INH SCH (10:07)
[2018-06-03] MEDS: TYLENOL PO PRN (12:07)
[2018-06-03] MEDS ORDERED: CALMOSEPTINE OINTMENT TOP PRN (16:57)
[2018-06-03] MEDS: LOVENOX SUBQ SCH (17:01)
[2018-06-03] MEDS: DESYREL PO SCH (20:36)
[2018-06-03] MEDS: PRAVACHOL PO SCH (20:37)
--- NOTE | 2018-06-03 20:48 | PROGRESS NOTE ---
DATE: 06/03/2018 SUBJECTIVE: The patient is still hurting on the right side. Pain is reproducible. X-rays discussed on the right rib series. No evidence of rib fracture identified. Some atelectasis in the left upper lobe. EXAMINATION: Vital Signs: Temperature is 98, pulse is 72, blood pressure 135/68, 2 L nasal cannula 96%. HEENT: Within normal limits. Neck: Supple. Chest: Bilateral air entry with rhonchi. Heart: Sounds are distant. Abdomen: Belly is soft, nontender. NEUROLOGIC: No neurological deficits. INVESTIGATION: CK is coming down. Index and troponin were negative. ASSESSMENT AND PLAN: 1. Chest pain. Most likely is musculoskeletal. 2. Increase CK due to mild rhabdomyolysis. 3. Hypostatic pneumonia, incentive spirometry. Out of the bed with physical therapy. 4. Urinary tract infection on IV Zosyn. 5. Continue IV hydration and check the aldolase in the morning and will follow up. LEVEL OF DOCUMENTATION: 25 minutes. cc: Elan Zaragoza MD
[2018-06-04] MEDS: DUONEB (A & A) INH SCH ×7 (03:34→20:40)
[2018-06-04] MEDS: ZOSYN 3.375 GM in NS 50 ML IV SCH ×4 (04:23→21:28)
[2018-06-04] MEDS: NEURONTIN PO SCH ×3 (04:24→21:28)
[2018-06-04] MEDS: ULTRAM PO SCH ×3 (04:24→21:28)
[2018-06-04] MEDS: HUMULIN R SUBQ SCH ×4 (06:09→21:29)
[2018-06-04] MEDS: NS 1,000 ML IV SCH ×2 (08:01→21:27)
[2018-06-04] MEDS: ELMIRON PO SCH ×2 (09:26→21:29)
[2018-06-04] MEDS: CYMBALTA PO SCH (09:27)
[2018-06-04] MEDS: ZYLOPRIM PO SCH (09:27)
[2018-06-04] MEDS: XANAX PO SCH ×2 (09:27→21:28)
[2018-06-04] MEDS: HYZAAR 50/12.5 MG PO SCH (09:27)
[2018-06-04] MEDS: ESTRACE PO SCH (09:27)
[2018-06-04] MEDS: CARDIZEM CD PO SCH (09:27)
[2018-06-04] MEDS: PRILOSEC PO SCH (09:27)
[2018-06-04] MEDS: KLOR-CON PO SCH ×2 (09:27→21:29)
[2018-06-04] MEDS: SPIRIVA INH SCH (09:49)
[2018-06-04] MEDS: TESSALON PO SCH ×2 (12:59→18:05)
[2018-06-04] MEDS: LOVENOX SUBQ SCH (18:05)
[2018-06-04] MEDS: PRAVACHOL PO SCH (21:29)
[2018-06-04] MEDS: DESYREL PO SCH (21:29)
--- NOTE | 2018-06-04 22:11 | PROGRESS NOTE ---
DATE: 06/04/2018 SUBJECTIVE: The patient is in a lot of pain, unable to breathe, and CK is coming down. The patient was not able to have sleep due to other patient's agitation. PHYSICAL EXAM: Vital signs: Temperature is 97 degrees, pulse is 80, blood pressure is stable. Room air 92%. HEENT: Within normal limits. Musculoskeletal: Tenderness in the right side of the chest noted. Chest: Poor inspiration due to splinting of the chest from the pain. Heart: Distant heart sounds. Gastrointestinal: Belly is soft, nontender. No obvious deficits noted. INVESTIGATIONS: CK was 810. Aldolase slightly high. ASSESSMENT AND PLAN: 1. History of fall, sustained multiple abrasions and injury to the right side of the chest causing the musculoskeletal pain. 2. Elevated creatinine kinase due to mild rhabdomyolysis. Continue IV fluids. 3. Intensive spirometry. 4. Gout, on allopurinol. 5. Urinary tract infection, on IV Zosyn. 6. Out of the bed with physical therapy. LEVEL OF DOCUMENTATION: 25 minutes. cc: Elan Zaragoza MD
[2018-06-05] MEDS: DUONEB (A & A) INH SCH ×4 (03:40→22:10)
[2018-06-05] MEDS: ZOSYN 3.375 GM in NS 50 ML IV SCH ×4 (04:45→21:26)
[2018-06-05] MEDS: ULTRAM PO SCH ×3 (05:01→21:26)
[2018-06-05] MEDS: NEURONTIN PO SCH ×3 (05:01→21:26)
[2018-06-05] MEDS: HUMULIN R SUBQ SCH ×4 (06:15→21:31)
[2018-06-05] MEDS: SPIRIVA INH SCH (08:14)
[2018-06-05] MEDS: CYMBALTA PO SCH (08:25)
[2018-06-05] MEDS: HYZAAR 50/12.5 MG PO SCH (08:25)
[2018-06-05] MEDS: ELMIRON PO SCH ×2 (08:25→21:27)
[2018-06-05] MEDS: KLOR-CON PO SCH ×2 (08:25→21:27)
[2018-06-05] MEDS: ZYLOPRIM PO SCH (08:25)
[2018-06-05] MEDS: ESTRACE PO SCH (08:25)
[2018-06-05] MEDS: TESSALON PO SCH ×3 (08:25→17:44)
[2018-06-05] MEDS: PRILOSEC PO SCH (08:25)
[2018-06-05] MEDS: CARDIZEM CD PO SCH (08:26)
[2018-06-05] MEDS: XANAX PO SCH ×2 (08:26→21:27)
[2018-06-05] MEDS: IMITREX PO PRN (09:57)
[2018-06-05] MEDS: NS 1,000 ML IV SCH (11:22)
[2018-06-05] MEDS: LOVENOX SUBQ SCH (17:44)
[2018-06-05] MEDS: DESYREL PO SCH (21:26)
[2018-06-05] MEDS: PRAVACHOL PO SCH (21:26)
--- NOTE | 2018-06-05 21:52 | PROGRESS NOTE ---
DATE: 06/05/2018 SUBJECTIVE: The patient is still in a lot of pain. Able to eat well, gets out of the bed. Had a good sleep. REVIEW OF SYSTEMS: None reported. EXAM: Vital Signs: Temperature is 97.6, pulse is 85, blood pressure 132/58, 97% on 2 L. HEENT: Exam within normal limits. Lungs: Poor air entry. Abdomen: Still reproducible pain. Belly is soft, nontender. Neurologic: No obvious neurological deficits. INVESTIGATIONS: Blood sugar 173, CK was 810, although it is slightly high. ASSESSMENT AND PLAN: 1. Chest pain due to musculoskeletal pain. 2. Repeat chest x-ray. Rule out pneumonia. 3. Urinary tract infection on IV antibiotics with Zosyn. 4. Mild rhabdomyolysis stable. Check the CK in the morning. Continue IV hydration. Out of the bed with physical therapy. 5. We will discuss with the about the follow up outpatient rehab versus home health care. 6. Repeat urine cultures. Blood cultures were negative and will follow up. LEVEL OF DOCUMENTATION: 25 minutes. cc: Elan Zaragoza MD
[2018-06-06] MEDS: NS 1,000 ML IV SCH ×2 (01:20→13:21)
[2018-06-06] MEDS: DUONEB (A & A) INH SCH ×4 (03:36→21:30)
[2018-06-06] MEDS: ZOSYN 3.375 GM in NS 50 ML IV SCH ×4 (04:32→21:05)
[2018-06-06] MEDS: NEURONTIN PO SCH ×3 (04:32→21:04)
[2018-06-06] MEDS: ULTRAM PO SCH ×3 (04:33→21:04)
[2018-06-06] MEDS: HUMULIN R SUBQ SCH ×4 (06:21→21:02)
[2018-06-06] MEDS: SPIRIVA INH SCH (07:39)
[2018-06-06 08:11] LABS: BASO# 0.01 X1000 (0.0-0.2); BASO% 0.5 % (0.0-0.8); EOS# 0.07 X1000 (0.0-0.7); EOS% 3.4 % (0.0-10.0); HEMATOCRIT 30.9 % (37.0-47.0); HEMOGLOBIN 9.3 g/dL (12.0-16.0); IMM GRAN# 0.04 X1000 (0.0-0.04); LYMPH# 0.75 X1000 (1.2-3.4); LYMPH% 36.9 % (20.5-51.1); MCH 29.1 PG (27-31); MCHC 30.1 g/dL (33-37); MCV 96.6 FL (81-99); MONO# 0.33 X1000 (0.11-0.59); MONO% 16.3 % (1.7-9.3); MPV 9.4 FL (7.4-10.4); NEUT# 0.83 X1000 (1.4-6.5); NEUT% 40.9 % (42.2-75.2); PLT 132 X1000 (130-400); RDW 13.9 % (11.5-14.5); WBC 2.03 X1000 (4.8-10.8)
[2018-06-06 08:16] LABS: CALCIUM 8.7 mg/dL (8.8-10.2); POTASSIUM 3.9 mmol/L (3.5-5.1)
[2018-06-06 09:01] LABS: CK INDEX 0.6 (0.0-2.5); CK-MB 2.53 ng/mL (0.0-5.0)
[2018-06-06] MEDS: IMITREX PO PRN (09:25)
[2018-06-06] MEDS: ZYLOPRIM PO SCH (09:27)
[2018-06-06] MEDS: TESSALON PO SCH ×3 (09:27→16:23)
[2018-06-06] MEDS: CYMBALTA PO SCH (09:27)
[2018-06-06] MEDS: PRILOSEC PO SCH (09:27)
[2018-06-06] MEDS: HYZAAR 50/12.5 MG PO SCH (09:27)
[2018-06-06] MEDS: ESTRACE PO SCH (09:27)
[2018-06-06] MEDS: ELMIRON PO SCH ×2 (09:27→21:10)
[2018-06-06] MEDS: CARDIZEM CD PO SCH (09:28)
[2018-06-06] MEDS: XANAX PO SCH ×2 (09:28→21:05)
[2018-06-06] MEDS: KLOR-CON PO SCH ×2 (09:28→21:05)
--- NOTE | 2018-06-06 10:41 | Diag Imaging Result Doc PS360 ---
CHEST-2 VIEWS - 06/06/2018 INDICATION: hypoxia COMPARISON: 06/02/2018 FINDINGS: Stable right chest port in good position. There is some linear atelectasis or infiltrate in the left upper lobe stable from prior. The appearance is indeterminate. There is some hazy infiltrate or atelectasis in the posterior left costophrenic angle also unchanged. IMPRESSION: No change in the small nonspecific airspace opacities in the left upper and lower lobes. Electronically signed by Lazaro Shahid 06/06/2018 10:38 AM
[2018-06-06] MEDS: TYLENOL PO PRN (16:25)
[2018-06-06] MEDS: LOVENOX SUBQ SCH (16:29)
[2018-06-06] MEDS: PRAVACHOL PO SCH (21:05)
[2018-06-06] MEDS: DESYREL PO SCH (21:10)
--- NOTE | 2018-06-06 21:58 | PROGRESS NOTE ---
DATE: 06/06/2018 SUBJECTIVE: The patient is a little better. Chest pain is improving and decreased cough and congestion OBJECTIVE: Vital signs: Temperature is 99 degrees, pulse 73, vitals are stable. HEENT exam: Within normal limits. Respiratory: Decreased rhonchi on the left side. Cardiovascular: Heart sounds are regular. Abdomen: Belly is soft, nontender. No neurological deficits. INVESTIGATIONS: CBC: White cell count 2.0, hematocrit 30.9, platelets 132,000. SMA-7: Sodium 140, potassium 3.9, chloride 106, BUN 6, creatinine 1.0. Glucose 132. CK was 398. ASSESSMENT AND PLAN: 1. Chest pain due to musculoskeletal pain. 2. Increase CK due to rhabdomyolysis. 3. Urinary tract infection on IV antibiotics. 4. Hypostatic bronchopneumonia. Continue incentive spirometry. Continue IV fluids and DVT prophylaxis out of the bed with physical therapy. We will discuss with the patient's tomorrow for disposition. LEVEL OF DOCUMENTATION: 25 minutes. cc: Elan Zaragoza MD MTDKiki
[2018-06-07] MEDS: DUONEB (A & A) INH SCH ×2 (03:11→09:14)
[2018-06-07] MEDS: NS 1,000 ML IV SCH (04:03)
[2018-06-07] MEDS: ZOSYN 3.375 GM in NS 50 ML IV SCH ×2 (04:04→09:42)
[2018-06-07] MEDS: NEURONTIN PO SCH (04:08)
[2018-06-07] MEDS: ULTRAM PO SCH (04:12)
[2018-06-07] MEDS: IMITREX PO PRN (04:40)
[2018-06-07] MEDS: HUMULIN R SUBQ SCH (06:32)
[2018-06-07 07:40] VITALS: BP 133/68
[2018-06-07] MEDS: SPIRIVA INH SCH (09:24)
[2018-06-07] MEDS: ESTRACE PO SCH (09:44)
[2018-06-07] MEDS: ZYLOPRIM PO SCH (09:44)
[2018-06-07] MEDS: XANAX PO SCH (09:44)
[2018-06-07] MEDS: ELMIRON PO SCH (09:44)
[2018-06-07] MEDS: HYZAAR 50/12.5 MG PO SCH (09:44)
[2018-06-07] MEDS: CARDIZEM CD PO SCH (09:44)
[2018-06-07] MEDS: TESSALON PO SCH (09:45)
[2018-06-07] MEDS: CYMBALTA PO SCH (09:45)
[2018-06-07] MEDS: KLOR-CON PO SCH (09:45)
[2018-06-07] MEDS: PRILOSEC PO SCH (09:45)
--- NOTE | 2018-06-08 18:16 | DISCHARGE SUMMARY ---
ADMISSION DATE: 06/01/2018 DISCHARGE DATE: 06/07/2018 DISCHARGING DIAGNOSIS: 1. Chest pain due to musculoskeletal pain. 2. Elevated CK to rhabdomyolysis. 3. Bronchopneumonia due to Hypostatic due to splinting of chest wall from chest pain. 4. Urinary tract infection. 5. Chronic anxiety. 6. Chronic obstructive pulmonary disease . 7. Type 2 diabetes insulin dependent. 8. Metabolic syndrome. 9. Hypertension . 10. Acid reflux disease. 11. Migraine headaches. 12. Hyperlipidemia. 13. Low-grade B-cell lymphoma in remission. 14. Kidney stones. 15. Sleep apnea. 16. Chronic fibromyalgia . 17. B12 deficiency. 18. History of port on the right side of the chest. 19. Abrasion of both knees status post bilateral knee replacements. BRIEF HISTORY: Please see the H and P that was done on 06/01/2018. In brief she is a 72-year-old white female was brought in after she fell in the bathroom by the . Patient sustained multiple injuries over the right side of the chest wall, upper part of the abdomen, bilateral knees. She has abrasions all over. Initial workup in ER did not show any evidence of bony fractures. Patient has elevated CK and aldolase. Patient was given IV fluids, pain control and incentive spirometry, physical therapy. She also started on IV Zosyn. Follow up hydration she did not have any significant acute kidney injury. Rest of the hospital course was uneventful. LABS: CBC. White cell count 2, hematocrit 30.9, platelet 132,000. Sodium 140, potassium 3.9, chloride 106, BUN 6, creatinine 1.0, glucose 132 and CK came down to 398, MB index came back negative, aldolase 9.1. Urine cultures grew no growth. Blood cultures were negative. Flu test was negative. RADIOLOGY PROCEDURES: Followup chest x-ray some nonspecific opacity in the left upper lobe. X- ray of right rib series no acute bony injury identified. X-ray of left humerus no acute bony injury. CT of the head and cervical spine, no evidence of intracranial disease and chronic white matter disease, multiple spondylosis changes noted C4-C5, C5-C6. X-ray of left forearm no acute bony injury. DISCHARGE INSTRUCTIONS: 1. Outpatient home health care. 2. Oxygen. 3. Incentive spirometry, physical therapy. Trazodone 150 at bedtime, Pravachol 40 daily, Cardizem 180 daily. Insulin pump as directed. Hyzaar 100/25 daily, ProAir HFA q.6 as needed, duloxetine 60 mg daily, Neurontin 300 t.i.d., Prilosec 40 mg daily, Elmiron 100 p.o. b.i.d. as needed, potassium 20 mEq twice daily, Xanax 1 mg b.i.d., tramadol 50 q.8, Imitrex as needed for headache, Advair 250/50 one puff b.i.d., Macrobid 100 p.o. b.i.d., Bactroban cream to the topical to both knees and follow up in my office in 2 weeks. cc: Elan Zaragoza MD MTDD
== END 2018-06-07 11:32 | disposition home health service (06) | DRG 565 ==
LOC: SUPCPDRO → ED 05:39 → 3N 16:10
PROVIDERS: ADMIT Internal Medicine; ATTEND Internal Medicine
CPT/HCPCS: 70450; 71010; 71020; 71045; 71046; 71101; 72125; 73030; 73060; 73090; 80048; 80053; 81001; 82085; 82550; 82553; 82948; 83605; 83735; 83880; 84484; 85025; 87040; 87088; 87275; 87276; 87804; 93005; 93010; 94640; 94761; 94799; 96365; 97116; 97162; 97530; 99285; A9270; J0696; J1650; J2543; J3480; J7030; XXXXX

== ENCOUNTER 2019-05-11 16:22 | Inpatient (IN) ==
--- NOTE | 2019-05-11 16:29 | PROVIDER DOCUMENTATION ---
HPI-General Adult - General Stated Complaint: L KNEE PAIN Time Seen by Provider: 05/11/19 16:28 Source: patient Allergies/Adverse Reactions: Patient Allergies Allergy/AdvReac Type Severity Reaction Status Date / Time latex Allergy RASH Verified 05/11/19 17:38 pregabalin [From Lyrica] Allergy SWELLING Verified 10/10/17 16:18 adhesive AdvReac Mild RASH Verified 10/10/17 16:18 Home Medications: Home Medication List Medication Instructions Recorded Confirmed Last Taken Type PRAVAstatin [Pravachol] 40 mg PO QHS 04/29/12 05/11/19 05/10/19 20:00 History Insulin Lispro [Humalog] 30 unit SUBQ DAILY 07/14/14 05/11/19 06/01/18 History Losartan/Hydrochlorothiazide 1 each PO DAILY 07/14/14 05/11/19 05/31/18 History [Losartan-Hctz 100-25 mg Tab] Acetaminophen [Tylenol] 2 cap PO Q6H PRN PRN 10/11/17 05/11/19 10/10/17 22:00 History 2 Alprazolam 1 mg PO BID 05/08/18 05/11/19 05/11/19 07:00 History Gabapentin [Neurontin] 300 mg PO BID 05/08/18 05/11/19 05/10/19 20:00 History Tramadol [Ultram] 50 mg PO Q8HR PRN 05/08/18 05/11/19 Unknown History Fluticasone/Salmet 250/50 INH 1 puff INH RTBID PRN 06/01/18 05/11/19 05/31/18 History [Advair 250/50 Diskus] Albuterol Sulfate [Proair 90 mcg INHALATION DAILY PRN 05/11/19 05/11/19 Unknown History Digihaler] Diltiazem HCl [Diltiazem ER] 180 mg PO DAILY 05/11/19 05/11/19 Unknown History Duloxetine [Cymbalta] 60 mg PO DAILY 05/11/19 05/11/19 Unknown History Estradiol Vaginal Cream [Estrace 1 applicator VAG DAILY 05/11/19 05/11/19 Unknown History Vaginal Cream] Exenatide E.r. [Bydureon] 2 mg SUBQ Q7D 02/16/20 02/16/20 Unknown History Omeprazole [Prilosec] 40 mg PO DAILY PRN 05/11/19 05/11/19 Unknown History Pentosan [Elmiron] 100 mg PO BID 05/11/19 05/11/19 05/10/19 20:00 History Sumatriptan Succinate [Imitrex] 100 mg PO PRN PRN 05/11/19 05/11/19 Unknown History Trazodone HCl 150 mg PO QHS 05/11/19 05/11/19 Unknown History - History of Present Illness -Gen Adult Nature of Presenting Problems: Pt. is 73 yof that presents with c/o left knee pain after she was standing in socks and her feet began slipping outward and her left knee buckled. She denies any other complaints but has had both knees replaced. Location of Pain/Injury: reports: lower extremity (Left knee). denies: none, head, face, mouth, neck, chest, upper extremity, hand(s), abdomen, back, pelvis, genitalia, feet, upper body, lower body, generalized, other Pain Radiation: reports: no radiation. denies: arm(s), back, buttocks, chest, epigastric, feet, groin, jaw, flank (L), legs (lower), LLQ, LUQ, neck, periumbilical, flank (R), RLQ, RUQ, shoulder(s), scapula, scrotal, sternal notch, suprapubic, legs (upper), urethral, vaginal, other Quality of Pain: reports: aching. denies: burning, cramping, sharp, throbbing, tightness Severity: reports: moderate. denies: mild, severe Onset/Duration: reports: abrupt, just prior to arrival Timing: reports: still present. denies: improving, intermittent, getting worse Context/Activities at Onset: reports: light activity, recent physical stress Modifying Factors: improves with: immobilization. worse with: movement, palpation Associated Symptoms: reports: joint pain (Left knee). denies: denies symptoms, anxiety, arm pain, back/neck pain, chest pain, constipation, cough, diaphoresis, diarrhea, dizziness, EENT symptoms, fatigue, fever/chills, genitourinary problems, headaches, heartburn, loss of appetite, malaise, muscle aches, sinus congestion/drainage, nausea, rash, seizure, shortness of breath, sensory/motor loss, pain with inspiration, swelling/mass in abdomen, syncope, vomiting, weakness, trouble walking, other Similar Symptoms Previously?: No Recently seen or treated by another doctor?: No Review of Systems - Adult - REVIEW OF SYSTEMS - ADULT Constitutional: reports: no symptoms reported Eyes: reports: no symptoms reported Ears, Nose, Mouth & Throat: reports: no symptoms reported Cardiovascular: reports: no symptoms reported Respiratory: reports: no symptoms reported Gastrointestinal: reports: no symptoms reported Genitourinary: reports: no symptoms reported Musculoskeletal: reports: see HPI, joint pain (Left knee). denies: back pain, muscle aches, neck pain Integumentary: reports: no symptoms reported Neurological: reports: no symptoms reported Psychiatric: reports: no symptoms reported Past History - Adult - PAST MEDICAL HISTORY-ADULT Review of Records: reports: Old Records Reviewed, Nursing Assessment Review, Medications Reviewed, Social history reviewed & non-contributory. Major Childhood Illnesses: reports: denies history Cardiovascular: reports: denies history Respiratory: reports: denies history Gastrointestinal: reports: denies history Obstetrical/Gynecological: reports: denies history Genitourinary: reports: denies history Musculoskeletal: reports: denies history Neurological: reports: denies history Endocrine/Immune: reports: denies history Other Conditions: reports: denies history - IMMUNIZATION STATUS Childhood Immunizations: See Nurse Assessment Flu Vaccine: See Nurse Assessment - FAMILY HISTORY Family History: reviewed, not pertinent - SOCIAL HISTORY Smoking: denies Physical Exam-General - PHYSICAL EXAM-ADULT Initial Vital Signs Reviewed: Yes - CONSTITUTIONAL General Appearance: alert, mild distress, obese. negative: anxious, slow to respond, obtunded, combative - EYES Eyes: PERRL/EOMI, pink conjunctivae - HEAD, EARS, NOSE, MOUTH & THROAT HENMT: normocephalic/atraumatic, moist mucous membranes - NECK Neck: non-tender, full range of motion, supple, normal inspection - RESPIRATORY Respiratory: lungs clear, normal breath sounds - CARDIOVASCULAR Cardiovascular: normal peripheral pulses, regular rate, rhythm, no edema - GASTROINTESTINAL (ABDOMEN) Abdominal Exam: normal bowel sounds, non tender, soft - LYMPHATIC Lymphatic: no adenopathy - MUSCULOSKELETAL Back Exam: normal inspection, no CVA tenderness, no vertebral tenderness Extremity: swelling (Left knee), tenderness (Left knee). negative: deformity, erythema, inflammation Peripheral Pulses: radial (R): 2+, radial (L): 2+ - SKIN Integumentary: normal color, normal turgor, warm/dry - NEUROLOGIC Neurologic: grossly normal, no motor/sensory deficits - PSYCHIATRIC Psych/Mental Status: normal mood/affect, normal thought content, normal thought process, oriented x 3. negative: anxious, paranoid, tearful Progress - PLAN OF CARE/RESULTS Progress/Plan/Lab Results: Laboratory Tests 05/11/19 05/11/19 05/11/19 18:09 18:09 18:09 WBC 6.09 RBC 3.74 L Hgb 10.9 L Hct 34.3 L MCV 91.7 MCH 29.1 MCHC 31.8 L RDW Std Deviation 13.4 Plt Count 212 MPV 8.5 Immature Gran % (Auto) 1.5 H Neut % (Auto) 45.8 Lymph % (Auto) 38.1 Erie % (Auto) 12.6 H Eos % (Auto) 1.5 Baso % (Auto) 0.5 Immature Gran # (Auto) 0.09 H Neut # (Auto) 2.79 Lymph # (Auto) 2.32 Erie # (Auto) 0.77 H Eos # (Auto) 0.09 Baso # (Auto) 0.03 PT 13.6 INR 1.03 PTT (Actin FS) 30.2 Sodium 140 Potassium 4.0 Chloride 101 Carbon Dioxide 28 Anion Gap 11 BUN 14 Creatinine 1.1 H Estimated GFR/1.73 m2 49 BUN/Creatinine Ratio 13 Glucose 117 H Calculated Osmolality 281 Calcium 9.1 Total Bilirubin 0.20 AST 20 ALT 14 Alkaline Phosphatase 111 H Creatine Kinase 75 Total Protein 5.8 L Albumin 3.4 L Globulin 2.4 Albumin/Globulin Ratio 1.4 Discussed results and plan of care with patient. Patient agrees with plan and verbalizes understanding. Result Diagrams: 05/11/19 18:09 05/11/19 18:09 - XRAY 1 XRAY: Left XRAY Study: Knee ([facility] - [address] , [address], [place] [id number] [facility] - [address] , [place] [address] Department of Imaging Patient: CASA CHEN Date: 05/11/19MR#: [id number] : 1945DM Status: REG ERAcct#: [id number] Age/Sex: 73/FRoom/Bed: Loc: ED Ordering Physician: Eamon Martin Family Physician: Dayana Zaragoza MD Reason for Procedure: injury with pain ___ Signed EXAM: KNEE 3 VIEWS LEFT 05/11/2019 HISTORY: injury with pain TECHNIQUE: Left knee three views COMMENT: There is a total knee arthroplasty. There is a fracture of the medial femoral epicondyle. There is an effusion in the suprapatellar bursa possibly a hemarthrosis. IMPRESSION: Fracture distal femur. Electronically signed by Danny Bernardo 05/11/2019 4:57 PM 05/11/191656 Interpreting Physician: Danny Bernardo MD Dictated Date/Time: 05/11/191654 cc: Eamon Martin; Dayana Zaragoza MD) XRAY Interpretation: See note 2 XRAY: Left XRAY Study: Pelvis ([facility] - [address] [place] [address] [place], [place] [id number] [facility] - [address] [place] [address] Department of Imaging Patient: CASA CHEN Date: 05/11/19MR#: [id number] : 1945DM Status: REG ERAcct#: [id number] Age/Sex: 73/FRoom/Bed: Loc: ED Ordering Physician: Eamon Martin Family Physician: Dayana Zaragoza MD Reason for Procedure: injury from fall Signed EXAM: XRAY PELVIS W/HIP 2-3VW LT 05/11/2019 HISTORY: injury from fall TECHNIQUE: AP pelvis and left hip three views COMMENT: The hip joint spaces are well-maintained. There is no evidence of fracture or dislocation. IMPRESSION: No acute bony abnormality. Electronically signed by Danny Bernardo 05/11/2019 4:58 PM 05/11/191657 Interpreting Physician: Danny Bernardo MD Dictated Date/Time: 05/11/191656 cc: Eamon Martin; Dayana Zaragoza MD), Hip XRAY Interpretation: See note 3 XRAY Study: Chest ([facility] - [address] [facility], [address] [place] [phone] [facility] - [address] [place] [address] Department of Imaging Patient: CASA CHEN Date: 05/11/19MR#: [id number] : 1945DM Status: REG ERAcct#: [id number] Age/Sex: 73/FRoom/Bed: Loc: ED Ordering Physician: Eamon Martin Family Physician: Dayana Zaragoza MD Reason for Procedure: admit Signed EXAM: CHEST-PORTABLE 05/11/2019 HISTORY: admit TECHNIQUE: Erect AP portable at 1713 COMMENT: There are fibrotic changes in the lingula which were also present on 06/06/2018. There is a Port-A-Cath on the right with its tip in the superior vena cava just above the right atrium. IMPRESSION: Fibrosis on the left. No evidence of acute disease. Electronically signed by Danny Bernardo 05/11/2019 5:19 PM 05/11/191718 Interpreting Physician: Danny Bernardo MD Dictated Date/Time: 05/11/191717 cc: Eamon Martin; Dayana Zaragoza MD) XRAY Interpretation: See note - CONSULTS/PCP/HOSPITALIST Notification #1 *Consult/PCP/Hospitalist*: Dr. Becker Time Discussed: 18:52 Reason/Comments: Admission Consult Disposition: Will see in ED, Admit #2 Consult: Dr. Vasquez Time Discussed: 19:06 Reason/Comments: Consult Consult Disposition: other (Will see in the morning) Departure - Departure Date of Disposition Decision: 05/11/19 Time of Disposition Decision: 18:52 DIAGNOSIS: Femoral distal fracture Qualifiers: Encounter type: initial encounter Fracture type: closed Fracture morphology: unspecified fracture morphology Laterality: left Qualified Code(s): S72.402A - Unspecified fracture of lower end of left femur, initial encounter for closed fracture Disposition: ADMITTED INPATIENT 09 Certified Medical Emergency: Emergent Condition: Stable Referrals and Follow-Ups: Dayana Zaragoza MD [Primary Care Provider] - - Critical Care Note This patient required my direct & personal management of CC.: No Attestation - Physician/ ELI Attestation Patient care was provided by Advanced Practice Provider:: Yes Advanced Practice Provider:: Eamon Martin Advanced Practice Provider documentation review:: The Mid-level provider documentation, treatment plan and medical decision making was reviewed by the physician who agrees with all treatment and medical decision making by the [facility]. The physician spent face to face time with patient:: No Advanced Practice Provider documentation review:: Supervising physician onsite and consulted in the evaluation and care of this patient. The physician did not have a face to face encounter with the patient.
--- NOTE | 2019-05-11 16:59 | Diag Imaging Result Doc PS360 ---
EXAM: KNEE 3 VIEWS LEFT 05/11/2019 HISTORY: injury with pain TECHNIQUE: Left knee three views COMMENT: There is a total knee arthroplasty. There is a fracture of the medial femoral epicondyle. There is an effusion in the suprapatellar bursa possibly a hemarthrosis. IMPRESSION: Fracture distal femur. Electronically signed by Danny Bernardo 05/11/2019 4:57 PM
--- NOTE | 2019-05-11 17:00 | Diag Imaging Result Doc PS360 ---
EXAM: XRAY PELVIS W/HIP 2-3VW LT 05/11/2019 HISTORY: injury from fall TECHNIQUE: AP pelvis and left hip three views COMMENT: The hip joint spaces are well-maintained. There is no evidence of fracture or dislocation. IMPRESSION: No acute bony abnormality. Electronically signed by Danny Bernardo 05/11/2019 4:58 PM
--- NOTE | 2019-05-11 17:22 | Diag Imaging Result Doc PS360 ---
EXAM: CHEST-PORTABLE 05/11/2019 HISTORY: admit TECHNIQUE: Erect AP portable at 1713 COMMENT: There are fibrotic changes in the lingula which were also present on 06/06/2018. There is a Port-A-Cath on the right with its tip in the superior vena cava just above the right atrium. IMPRESSION: Fibrosis on the left. No evidence of acute disease. Electronically signed by Danny Bernardo 05/11/2019 5:19 PM
[2019-05-11 18:25] LABS: BASO# 0.03 X1000 (0.0-0.2); BASO% 0.5 % (0.0-0.8); EOS# 0.09 X1000 (0.0-0.7); EOS% 1.5 % (0.0-10.0); HEMATOCRIT 34.3 % (37.0-47.0); HEMOGLOBIN 10.9 g/dL (12.0-16.0); IMM GRAN# 0.09 X1000 (0.0-0.04); IMM GRAN% 1.5 % (0.0-0.5); LYMPH# 2.32 X1000 (1.2-3.4); LYMPH% 38.1 % (20.5-51.1); MCH 29.1 PG (27-31); MCHC 31.8 g/dL (33-37); MCV 91.7 FL (81-99); MONO# 0.77 X1000 (0.11-0.59); MONO% 12.6 % (1.7-9.3); MPV 8.5 FL (7.4-10.4); NEUT# 2.79 X1000 (1.4-6.5); NEUT% 45.8 % (42.2-75.2); PLT 212 X1000 (130-400); RBC 3.74 XMIL (4.2-5.4); RDW 13.4 % (11.5-14.5); WBC 6.09 X1000 (4.8-10.8)
[2019-05-11 18:32] LABS: INR 1.03; PROTIME 13.6 Seconds (11.0-16.0)
[2019-05-11 18:33] LABS: PTT 30.2 Seconds (22.3-41.8)
[2019-05-11 18:42] LABS: ALB/GLOB RATIO 1.4; ALBUMIN 3.4 g/dL (3.5-5.0); CALCIUM 9.1 mg/dL (8.8-10.2); CREATININE 1.1 mg/dL (0.5-0.9); TOTAL BILIRUBIN 0.2 mg/dL (0.20-1.00); TOTAL PROTEIN 5.8 g/dL (6.3-8.3)
[2019-05-11 18:53] LABS: URINE SOURCE CATH
[2019-05-11 18:57] LABS: BILIRUBIN URINE NEGATIVE (NEGATIVE); BLOOD URINE SMALL (NEGATIVE); COLOR ORANGE; GLUCOSE URINE NEGATIVE (NEGATIVE); KETONE URINE NEGATIVE (NEGATIVE); LEUKOCYTES URINE LARGE (NEGATIVE); NITRITE URINE NEGATIVE (NEGATIVE); PH URINE 6.5; PROTEIN URINE 30 mg/dL (NEGATIVE); SP GRAVITY URINE 1.015; TURBIDITY URINE TURBID (CLEAR); UROBILINOGEN URINE NORMAL (NORMAL)
[2019-05-11] MEDS ORDERED: NS 1,000 ML IV ONE (19:07)
[2019-05-11 19:13] LABS: UR EPITHELIAL CELLS <10 /HPF (<10); URINE BACTERIA 2+ /HPF; URINE WBC TNTC /HPF (<10)
[2019-05-11] MEDS: MORPHINE IV PRN (20:25)
--- NOTE | 2019-05-11 20:27 | EKG Report ---
Test Performed on : 05/11/2019 5:38:49 PM Test Reason : admit Blood Pressure : / mmHG Vent. Rate : 070 BPM Atrial Rate : 070 BPM P-R Int : 188 ms QRS Dur : 090 ms QT Int : 428 ms P-R-T Axes : 043 010 062 degrees QTc Int : 462 ms Normal sinus rhythm. Nonspecific T wave abnormality Abnormal ECG When compared with ECG of 02-JUN-2018 06:52, No significant change was found Unconfirmed Result
--- NOTE | 2019-05-11 21:30 | HISTORY AND PHYSICAL ---
CHIEF COMPLAINT: Left leg pain. HISTORY OF PRESENT ILLNESS: The patient is a 73-year-old white female followed by Dr. José Zaragoza. She was at her home earlier this afternoon when she went into her closet which had wood reymundo. She had socks on her feet and she started to slip and slipped down with her left leg going outward as in the splits fashion. She saw great deformity developing her left femur and indeed, on x-ray, there is left femur fracture into the joint space where she has had prior left total knee replacement. Her knees have been done in the past on both sides by Dr. Berman/Amos remotely. MEDICATIONS PRIOR TO ADMISSION: Pravachol 40 mg p.o. at bedtime, Humalog 30 units subcu daily, Hyzaar 100/25 one p.o. daily, Tylenol p.r.n., Neurontin 300 mg p.o. b.i.d., Xanax 1 mg p.o. b.i.d., 50 mg tramadol q.8 hours p.r.n. pain, Advair 250/50 one puff b.i.d., albuterol MDI 2 puffs daily p.r.n., Cymbalta 60 mg daily, Estrace vaginal cream 1 applicator full per vagina daily, Bydureon 2 mg subcutaneous once weekly, omeprazole 40 mg p.o. daily p.r.n., Elmiron 100 mg p.o. b.i.d., diltiazem ER 180 mg p.o. daily, trazodone 150 mg p.o. at bedtime, Imitrex 100 mg p.o. p.r.n. migraine. ALLERGIES: To latex, pregabalin and adhesive. PAST MEDICAL HISTORY: 1. Chronic anxiety. 2. COPD. 3. Insulin-requiring diabetes mellitus, on insulin pump. 4. Metabolic syndrome. 5. Hypertension. 6. GERD. 7. Migraine headaches. 8. Hyperlipidemia. 9. 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 10. History of kidney stones. 11. Obstructive sleep apnea. 12. Urinary incontinence. 13. Fibromyalgia. 14. Vitamin B12 deficiency. 15. Interstitial cystitis. PAST SURGICAL HISTORY: 1. Bilateral cataract surgery. 2. Cholecystectomy. 3. JON/BSO. 4. Bilateral knee replacements. 5. Left forearm ORIF. 6. Port-A-Cath right upper chest per Dr. Goins, which remains in place. 7. Tonsillectomy. 8. Cholecystectomy. FAMILY HISTORY: Notable for Parkinson disease in her father. SOCIAL HISTORY: Patient [place] in the local area. She is has 2 children. She is nonsmoker. Does not drink alcohol. REVIEW OF SYSTEMS: Negative except as above. PHYSICAL EXAM: VITAL SIGNS: Afebrile, pulse 77, respirations 16, blood pressure 147/87, O2 saturation on room air 97%. Weight 241, height 5 feet 8 inches tall. GENERAL: Morbidly obese white female. Pain is fairly well controlled presently on morphine. SKIN: No skin breakdown. HEENT: NC/AT. HEENT: PERRL. EOMI. Sclerae clear. OP no redness. Tongue in the midline. NECK: No LA, TMG, JVD, bruits. CV: RRR without murmur. LUNGS: CTA. ABDOMEN: Protuberant, soft, active bowel sounds. No pinpoint tenderness. BREASTS/PELVIC/RECTAL: Deferred. EXTREMITIES: Trace lower extremity edema. Deformity to the left thigh noted. NEUROLOGIC: Cranial nerves are intact. No focal deficits. LABS: Lab show white count 6.09, hemoglobin 10.9, hematocrit 34.3, MCV 91.7, platelets 212,000, neutrophils 45, lymphocytes 38, monocytes 12.6. PT 13.6, INR 1.03, PTT 30.2. Sodium 140, potassium 4.0, chloride 101, CO2 28, BUN 14, creatinine 1.1, glucose 117, calcium 9.1, total bilirubin 0.2, AST 20, ALT 14, alkaline phosphatase 111, CK 75, total protein 5.8, albumin 3.4. Urinalysis shows too numerous to count WBCs, large leukocytes, 2+ bacteria. A blood small. Urine culture has been obtained. Chest x-ray reveals fibrotic changes on the left, otherwise negative. EKG shows sinus rhythm, nonspecific T-wave abnormalities. Hip and pelvis x-rays, no acute bony abnormality. Knee x-ray on the left reveals fracture distal femur and fracture of the medial femoral epicondyle, possible andres-arthrosis. ASSESSMENT: 1. Left femur fracture, possibly into the prior left knee replacement. 2. Mechanical fall. 3. Morbid obesity. 4. Insulin-requiring diabetes mellitus. 5. Chronic obstructive pulmonary disease. 6. Follicular B-cell lymphoma in remission and followed by Dr. Coreas. 7. Hypertension. 8. Chronic anxiety. 9. Hyperlipidemia. 10. Migraine headaches. 11. Gastroesophageal reflux disease. 12. Fibromyalgia. 13. Urinary incontinence. 14. Obstructive sleep apnea. 15. Vitamin B12 deficiency. 16. IC. PLAN: Admit the patient. Monitor serial Accu-Cheks. Give her morphine for pain. Ask Dr. Vasquez of the [facility] to see the patient in consultation in the morning. Keep her NPO after midnight. Diabetic diet in the meantime. cc: MD Elan Fish MD MTDD
[2019-05-11] MEDS: HUMULIN R SUBQ SCH (23:33)
[2019-05-11] MEDS ORDERED: TYLENOL PO PRN (23:33)
[2019-05-12] MEDS: NEURONTIN PO SCH ×3 (00:48→22:47)
[2019-05-12] MEDS: XANAX PO SCH ×3 (00:48→22:48)
[2019-05-12] MEDS: MORPHINE IV PRN ×4 (01:31→15:28)
[2019-05-12] MEDS: HUMULIN R SUBQ SCH ×7 (07:00→21:00)
[2019-05-12] MEDS: ADVAIR 250/50 DISKUS INH PRN (08:06)
[2019-05-12] MEDS ORDERED: LEVAQUIN 500 MG/D5W 500 MG/100 ML IVPB IV ONE (08:11)
[2019-05-12] MEDS ORDERED: ULTRAM PO PRN (08:12)
[2019-05-12] MEDS ORDERED: SODIUM CHLORIDE 0.9% INJ SCH (08:15)
[2019-05-12] MEDS: HYZAAR 50/12.5 MG PO SCH (10:38)
[2019-05-12] MEDS: CARDIZEM CD PO SCH (10:39)
[2019-05-12] MEDS: CYMBALTA PO SCH (10:39)
[2019-05-12] MEDS: ELMIRON PO SCH ×2 (10:40→22:47)
[2019-05-12] MEDS: LOVENOX SUBQ SCH (10:40)
[2019-05-12] MEDS: PROTONIX IV SCH (10:41)
[2019-05-12] MEDS: LEVAQUIN 500 MG/D5W 500 MG/100 ML IVPB IV SCH (10:43)
[2019-05-12] MEDS: ESTRACE VAGINAL CREAM VAG SCH (10:44)
--- NOTE | 2019-05-12 18:22 | ORTHOPAEDICS CONSULTATION ---
DATE: 05/12/2019 REASON FOR CONSULT: Left distal femur fracture. HISTORY OF PRESENT ILLNESS: Ms. Roe is a 73-year-old white female whose primary care physician is Dr. Zaragoza. She was at her home on Sunday when she was in her closet and had on socks. She states that she was hanging clothes and her socks slipped on her wooden floor causing her legs to go in a split pattern. She then fell and developed immediate pain to her left thigh area. Her transported her to the ER, where they obtained an x-ray that revealed a distal left femur fracture, possibly in the joint space where she had a prior left total knee arthroplasty. She states this arthroplasty was done approximately 8 [address] ago [address] a Dr[address] Berman or Amos. She has been placed in a knee immobilizer at this time. Orthopedics has been consulted for further management of this left distal femur fracture. MEDICATIONS PRIOR TO ADMISSION: 1. Pravachol 40 mg p.o. at bedtime. 2. Humalog 30 units subcu daily. 3. Hyzaar 10/25 1 p.o. daily. 4. Tylenol p.r.n. 5. Neurontin 300 mg p.o. b.i.d. 6. Xanax 1 mg p.o. b.i.d. 7. Tramadol 50 mg q.8 hours p.r.n. pain. 8. Advair 250/50 one puff b.i.d. 9. Albuterol 2 puffs daily p.r.n. 10. Cymbalta 60 mg p.o. daily. 11. Estrace vaginal cream 1 application daily. 12. Bydureon 2 mg subcu once weekly. 13. Omeprazole 40 mg p.o. daily p.r.n. 14. Imuran 100 mg p.o. b.i.d. 15. Trazodone 150 mg p.o. at bedtime. 16. Imitrex 100 mg p.o. p.r.n. migraine. 17. Cardizem ER 180 mg p.o. daily. ALLERGIES: Latex, pregabalin, and adhesives. PAST MEDICAL HISTORY: 1. Anxiety. 2. COPD. 3. Insulin requiring diabetes. She is currently on insulin pump. 4. Metabolic syndrome. 5. Hypertension. 6. GERD. 7. Migraines. 8. Hyperlipidemia, 9. Follicular B-cell lymphoma in remission. 10. Kidney stones. 11. Obstructive sleep apnea. 12. Urinary incontinence. 13. Fibromyalgia. 14. Vitamin B12 deficiency, 15. Interstitial cystitis. PAST SURGICAL HISTORY: 1. Bilateral cataracts. 2. Cholecystectomy. 3. JON/BSO. 4. Bilateral knee arthroplasties. 5. Left forearm ORIF. 6. Port-A-Cath placement. 7. Tonsillectomy. 8. Cholecystectomy. FAMILY HISTORY: Noncontributory. SOCIAL HISTORY: The patient lives at home with her . She has 2 children. She is a nonsmoker. She does not drink any alcohol. She states she has had recent difficulties with mobilization due to having bladder leakage. She has been using a bedside commode and her states he has been having to help her. PHYSICAL EXAMINATION: Most Recent Vital Signs: Reveal a temperature of 98.2 degrees, heart rate of 92, blood pressure 148/75, and she is saturating 98% on room air. General: In general, Ms. Roe is lying in bed at this time with no complaints. She has a knee immobilizer onto her left leg. She does have some swelling and tenderness around the left distal femur. Her extremity is not shortened nor externally rotated. Her sensation is intact distally. She is able to dorsiflex and plantar flex her left foot as well as wiggle her toes without any difficulty. She does have some bilateral edema to her lower extremities. Respiratory: Her breathing is nonlabored at this time. LABORATORY DATA: Most recent labs reveal a white count of 6.9, hemoglobin and hematocrit of 10 and 34, glucose of 88, creatinine of 1.1. IMAGING: Hip and pelvis x-rays reveal no acute bony abnormality. An x-ray of the left knee reveals a fracture of the distal femur of the medial femoral condyle. She has a prior left total knee arthroplasty. ASSESSMENT: Left distal femur fracture after a mechanical fall. PLAN: She has been admitted to the hospitalist at this time. We are going to place her in a knee ranger hinged brace and she will be nonweightbearing on her left lower extremity. The patient's states the last time she fell, she had to be admitted to a rehab facility due to him not being able to help her ambulate at home. This may be what she has to do after this visit as well. Otherwise, for management of that left distal femur fracture she can follow up with Dr. Vasquez on an outpatient basis. Thank you for this consultation. Dictated by DESIREE Owens for Brad Vasquez MD cc: MD Elan Waterman MD [facility]
--- NOTE | 2019-05-12 20:22 | PROGRESS NOTE ---
DATE: 05/12/2019 SUBJECTIVE: A 73-year-old white female was admitted to the hospital over the weekend by Dr. Becker after she fell at home and sustained injury to the left knee. Patient has a prosthetic knee replacement by Dr. Ford several years ago. She had a supracondylar femur fracture on the medial side nondisplaced. The patient has been immobilized and Dr. Vasquez was consulted. The patient denies any significant symptoms other than pain. She has a Han. She has lower abdominal pain. PAST MEDICAL HISTORY: Reviewed. PAST SURGICAL HISTORY: Reviewed. MEDICINES: Reviewed. ALLERGIES: Latex, adhesive tapes, and Lyrica. OBJECTIVE: Vital signs: Temperature is 98.2 degrees, pulse 92, blood pressure is 148/78, 98% on room air. General: Heavy set. HEENT: Within normal limits. Neck: Supple. No lymphadenopathy. Chest: Bilateral air entry, decreased on the left side. Cardiovascular: Heart sounds are regular. Abdomen: Belly is soft, obese, nontender. Good bowel sounds. Extremities: Has immobilizer placed. Neurological: No obvious deficits noted. LABORATORY DATA: CBC: White cell count 6, hematocrit 34, platelets 212,000. PT/INR is normal. Creatinine 1.1, glucose 117. Urinalysis positive for infection. Urine cultures: Gram-negative rods. ASSESSMENT AND PLAN: 1. Status post left supracondylar femur fracture on the medial side, in the context of knee replacement is nondisplaced. Continue on medical management as per Dr. Vasquez. 2. Out of the bed with physical therapy. 3. Urinary tract infection. Started on Levaquin. Follow up on culture and sensitivity. 4. Deep venous thrombosis prophylaxis with Lovenox. Gastrointestinal prophylaxis with intravenous Nexium. 5. Reconcile home medicines. 6. Diabetes on insulin with sliding scale coverage off on insulin pump and probably needs a neonatal social worker consult for rehab placement. 7. History of non-Hodgkin lymphoma, stable. 8. Hyperlipidemia on Pravachol. LEVEL OF DOCUMENTATION: 35 minutes. cc: Elan Zaragoza MD
[2019-05-12] MEDS: DESYREL PO SCH (22:46)
[2019-05-12] MEDS: PRAVACHOL PO SCH (22:47)
[2019-05-13] MEDS: MORPHINE IV PRN ×2 (03:30→07:18)
[2019-05-13] MEDS: HUMULIN R SUBQ SCH ×8 (07:00→22:38)
[2019-05-13] MEDS: ADVAIR 250/50 DISKUS INH PRN ×2 (07:53→19:32)
[2019-05-13] MEDS ORDERED: NORCO-5 PO ONE (08:08)
[2019-05-13] MEDS: LOVENOX SUBQ SCH (08:40)
[2019-05-13] MEDS: PROTONIX IV SCH (08:40)
[2019-05-13] MEDS: ELMIRON PO SCH ×2 (08:41→20:58)
[2019-05-13] MEDS: NEURONTIN PO SCH ×2 (08:41→21:01)
[2019-05-13] MEDS: HYZAAR 50/12.5 MG PO SCH (08:42)
[2019-05-13] MEDS: XANAX PO SCH ×2 (08:42→20:58)
[2019-05-13] MEDS: CARDIZEM CD PO SCH (08:42)
[2019-05-13] MEDS: CYMBALTA PO SCH (08:43)
[2019-05-13] MEDS: LEVAQUIN 500 MG/D5W 500 MG/100 ML IVPB IV SCH (08:43)
[2019-05-13] MEDS: ESTRACE VAGINAL CREAM VAG SCH (11:51)
[2019-05-13] MEDS: NORCO-5 PO PRN (13:29)
[2019-05-13] MEDS: ULTRACET 37.5MG/325MG PO PRN ×2 (14:54→20:57)
--- NOTE | 2019-05-13 15:12 | ORTHOPAEDICS PROGRESS NOTE ---
DATE: 05/13/2019 Ms. Roe is seen for followup of her supracondylar periprosthetic femur fracture. At the present time, she is in a knee immobilizer. She can be transferred to rehab center with the knee immobilizer and hinged knee brace on. She needs to be touchdown weightbearing. Will see her in the office in roughly 1 week for followup x-rays. Will be available as needed at this point. cc: MD Elan Waterman MD
[2019-05-13] MEDS: PRAVACHOL PO SCH (20:58)
[2019-05-13] MEDS: DESYREL PO SCH (20:58)
--- NOTE | 2019-05-13 21:26 | PROGRESS NOTE ---
DATE: 05/13/2019 SUBJECTIVE: The patient, last night, she was in a lot of pain. Apparently, she was delirious, pulled the Han out and the patient is on knee immobilizer. I appreciate Dr. Vasquez's consult and he wants conservative management for supracondylar left knee periprosthetic fracture. Urine cultures grew E coli. ESBL negative. Sensitive to Levaquin. PHYSICAL EXAMINATION: Vital signs: Temperature is 98 degrees, pulse is 95. Vitals are stable. Saturating 95% on room air. General: Obese. Chest: Bilateral air entry. Heart: Sounds are regular. Abdomen: Belly is soft, nontender. Genitourinary: The patient is in diapers. INVESTIGATIONS: E coli positive urinary tract infection. ASSESSMENT AND PLAN: 1. Left knee periprosthetic supracondylar fracture. Conservative management. 2. Escherichia coli with urinary tract infection, extended spectrum beta-lactamases negative. Plan of care is: 1. Continue IV antibiotics. 2. Physical therapy. 3. [employer] consult for rehab. 4. For pain control, we will start on Ultracet and Reading and incentive spirometry. 5. Reconcile home medications. LEVEL OF DOCUMENTATION: 25 minutes. cc: Elan Zaragoza MD
[2019-05-14] MEDS: NORCO-5 PO PRN ×2 (00:58→12:21)
[2019-05-14] MEDS: HUMULIN R SUBQ SCH ×5 (02:08→22:54)
[2019-05-14] MEDS: ADVAIR 250/50 DISKUS INH PRN ×2 (07:59→19:46)
[2019-05-14] MEDS: LEVAQUIN 500 MG/D5W 500 MG/100 ML IVPB IV SCH (09:13)
[2019-05-14] MEDS: ELMIRON PO SCH ×2 (09:17→22:56)
[2019-05-14] MEDS: CYMBALTA PO SCH (09:17)
[2019-05-14] MEDS: LOVENOX SUBQ SCH (09:18)
[2019-05-14] MEDS: HYZAAR 50/12.5 MG PO SCH (09:18)
[2019-05-14] MEDS: CARDIZEM CD PO SCH (09:18)
[2019-05-14] MEDS: XANAX PO SCH ×2 (09:18→22:55)
[2019-05-14] MEDS: NEURONTIN PO SCH ×2 (09:18→22:56)
[2019-05-14] MEDS: ESTRACE VAGINAL CREAM VAG SCH (09:19)
[2019-05-14] MEDS: ZOFRAN IV PRN ×2 (14:36→18:44)
[2019-05-14] MEDS ORDERED: BENADRYL PO PRN (19:07)
--- NOTE | 2019-05-14 21:36 | PROGRESS NOTE ---
DATE: 05/14/2019 SUBJECTIVE: The patient is a little better and pain is adequately controlled. I discussed with Dr. Vasquez the findings. Waiting for placement in [place]. OBJECTIVE: Vital signs: Temperature is 98 degrees. Pulse is 93. Vitals are stable. 93% on room air. HEENT: Within normal limits. Neck: Supple. Chest: Clear. Heart: Sounds are regular. Abdomen: Belly is soft and nontender. INVESTIGATIONS: Urine for Escherichia coli present. ASSESSMENT: 1. Left knee periprosthetic supracondylar fracture. 2. Urinary tract infection. 3. Non-Hodgkin's lymphoma. PLAN: 1. Out of the bed with physical therapy. 2. Continue intravenous antibiotics for 48 hours and transitioning into the p.o. medication. 3. Will transfer to the rehab on Sunday. We will do the paperwork tomorrow. LEVEL OF DOCUMENTATION: 25 minutes. cc: Elan Zaragoza MD
[2019-05-14] MEDS: ULTRACET 37.5MG/325MG PO PRN (22:55)
[2019-05-14] MEDS: DESYREL PO SCH (22:55)
[2019-05-14] MEDS: PRAVACHOL PO SCH (22:56)
[2019-05-15] MEDS: LEVAQUIN 500 MG/D5W 500 MG/100 ML IVPB IV SCH (07:16)
[2019-05-15] MEDS: NORCO-5 PO PRN ×3 (07:16→22:27)
[2019-05-15] MEDS: PRILOSEC PO PRN (07:16)
[2019-05-15] MEDS: HUMULIN R SUBQ SCH ×4 (07:16→22:20)
[2019-05-15] MEDS: ADVAIR 250/50 DISKUS INH PRN ×2 (07:47→19:50)
[2019-05-15] MEDS: ELMIRON PO SCH ×2 (10:40→22:28)
[2019-05-15] MEDS: CYMBALTA PO SCH (10:40)
[2019-05-15] MEDS: HYZAAR 50/12.5 MG PO SCH (10:40)
[2019-05-15] MEDS: CARDIZEM CD PO SCH (10:41)
[2019-05-15] MEDS: ESTRACE VAGINAL CREAM VAG SCH (10:41)
[2019-05-15] MEDS: LOVENOX SUBQ SCH (10:41)
[2019-05-15] MEDS: XANAX PO SCH ×2 (10:41→22:28)
[2019-05-15] MEDS: NEURONTIN PO SCH ×2 (10:41→22:28)
--- NOTE | 2019-05-15 21:24 | PROGRESS NOTE ---
DATE: 05/15/2019 SUBJECTIVE: The patient is doing better. Pain is adequately controlled. OBJECTIVE: Temperature is 97 degrees, pulse 93. Vitals are stable.HEENT: Within normal limits. Neck: Supple. Chest: Bilateral air entry. Heart sounds are regular. Belly is soft, nontender. ASSESSMENT AND PLAN: 1. Left knee periprosthetic supracondylar fracture. 2. Urinary tract infection. 3. Diabetes. 4. Hyperlipidemia. 5. Chronic insomnia. Continue present treatment, knee immobilizer, outpatient physical therapy. We will transfer to the rehab tomorrow and continue present treatment. LEVEL OF DOCUMENTATION: 25 minutes. cc: Elan Zaragoza MD
[2019-05-15] MEDS: DESYREL PO SCH (22:28)
[2019-05-15] MEDS: PRAVACHOL PO SCH (22:28)
[2019-05-16] MEDS: HUMULIN R SUBQ SCH ×2 (06:51→11:34)
[2019-05-16] MEDS: ADVAIR 250/50 DISKUS INH PRN (08:04)
[2019-05-16] MEDS: ESTRACE VAGINAL CREAM VAG SCH (08:19)
[2019-05-16] MEDS: LEVAQUIN 500 MG/D5W 500 MG/100 ML IVPB IV SCH (08:19)
[2019-05-16] MEDS: PRILOSEC PO PRN (08:24)
[2019-05-16] MEDS: NORCO-5 PO PRN (08:24)
[2019-05-16] MEDS: LOVENOX SUBQ SCH (09:36)
[2019-05-16] MEDS: XANAX PO SCH (09:36)
[2019-05-16] MEDS: CYMBALTA PO SCH (09:36)
[2019-05-16] MEDS: NEURONTIN PO SCH (09:36)
[2019-05-16] MEDS: HYZAAR 50/12.5 MG PO SCH (09:36)
[2019-05-16] MEDS: CARDIZEM CD PO SCH (09:36)
[2019-05-16] MEDS: ELMIRON PO SCH (09:37)
--- NOTE | 2019-05-16 09:42 | DISCHARGE SUMMARY ---
ADMISSION DATE: 05/11/2019 DISCHARGE DATE: 05/16/2019 DISCHARGING DIAGNOSIS: Left knee supracondylar periprosthetic femur fracture on the medial side. SECONDARY DIAGNOSES: 1. Urinary tract infection due to Escherichia coli extended spectrum beta lactamase negative sensitive to Levaquin. 2. Chronic anxiety. 3. Type 2 diabetes insulin dependent on insulin pump. 4. Metabolic syndrome. 5. Hypertension. 6. Acid reflux disease. 7. Migraine headaches. 8. Hyperlipidemia. Low-grade B-cell lymphoma in remission. 9. Chronic interstitial cystitis with overactive bladder. 10. Kidney stones. Sleep apnea. 11. B12 deficiency. 12. History of bilateral knee replacements with arthroplastic changes. CONSULTS: Dr. Vasquez. BRIEF HISTORY: Please see the H and P that was done by Dr. Becker. In brief she is a 73-year-old white female fell at home, sustained injury to the left knee. The patient was found to have periprosthetic fracture supracondylar on the medial side of the femur. It appears to be hairline fracture, stable. The patient was hospitalized and ortho was consulted. Dr. Vasquez recommended basically knee immobilizer and basically needed touchdown weightbearing and then follow up in his office in 1 week. During this hospital course the patient was found to have delirium that is resolved. The pain is adequately controlled since she is on a lot of pain medications and since the patient has been polypharmacy, we will use the Ultracet as needed for control the pain. For UTI, she has overactive bladder with interstitial cystitis and grew E coli which is ESBL negative. The patient was given IV antibiotics continue on Levaquin for 10 days. The patient also has high risk for DVT, continue on Lovenox 40 mg subcutaneous daily for 3 weeks. Discussed the plan of care with the and patient has been discharged to the rehab in a stable condition. LABS: During this admission as follows CBC: White cell count 6, hematocrit 34, platelets 212,000. PT 13, INR 1.0. Sodium 140, potassium 4, BUN 14, creatinine 1.1 glucose 117. LFTs were normal. Chest x-ray, fibrosis of the left, otherwise no evidence of acute disease and port on the right side. X-rays of the hip and pelvis: No acute bony abnormality. Left knee periprosthetic supracondylar distal femur fracture on the medial side. DISCHARGE INSTRUCTIONS: 1. Up-to-date on flu vaccine 2019, pneumococcal vaccine 13 was given 06/27/2017. 2. Pravastatin 40 mg daily, insulin pump with sliding scale insulin coverage, Hyzaar 100/25 daily, Neurontin 300 p.o. b.i.d., Xanax 1 mg p.o. b.i.d., Advair 250/50 one puff b.i.d., ProAir 1 puff q 6 as needed, Cymbalta 60 daily, Estrace vaginal cream daily, Bydureon 2 mg subcutaneous once a week, Prilosec 40 mg daily. Elmiron 100 p.o. b.i.d., Cardizem 180 daily, trazodone 150 at bedtime. Imitrex 100 mg as needed for migraine headaches. New medicines are Ultracet 1 tablet q. 6 for pain, Lovenox 40 mg subcutaneous daily for 3 weeks, Levaquin 500 daily for 10 days. FOLLOWUP: Dr. Vasquez next week as well as in my office. cc: MD Brad Willams MD
[2019-05-16 12:09] VITALS: BP 110/55
== END 2019-05-16 12:55 | DRG 534 ==
LOC: SUPCPDRO → ED 16:22 → EDIPHOLD 20:06 → 4N 05-12 06:48
PROVIDERS: ADMIT Internal Medicine; ATTEND Internal Medicine